=== PATIENT | female | born 2000 | race Two or more races ===

== ENCOUNTER 2024-05-10 19:57 | Inpatient (IN) | payer MEDICAID, SELFPAY ==
[2024-05-10] VITALS (8 sets, daily range): BP systolic 102–105; BP diastolic 53–68; PULSE 140–177; RESP 20–41; TEMP 38.8–39; O2SAT 2–100; BMI 16.6
--- NOTE | 2024-05-10 20:33 | XR_ITS ---
Examination: AP chest single view Technique one AP portable semiupright chest single view. Examination time: Every second 2024 2055 hours Comparison August 11, 2023 INDICATIONS: Sepsis today. FINDINGS: Early bilateral perihilar pneumonia. Normal heart size. The osseous structures are intact IMPRESSION: Early bilateral pneumonia
[2024-05-10 20:44] LABS: Collection Type, Urine Catheter; WBC,Urine 0 /hpf (0-5)
[2024-05-10] MEDS: RINGERS LACTATED 1000 ML 1,000 ML 999 ML IV (20:53)
[2024-05-10 20:58] LABS: Lactate (Lactic Acid) 1.5 mMol/L (0.4-2.0)
[2024-05-10 20:59] LABS: Basophils % (Auto) 0 % (0-2.5); Eosinophils # (Auto) 0.2 Thou/mm3 (0.0-0.5); Eosinophils % (Auto) 2 % (0-10); Hematocrit 32.2 % (36.0-46.0); Hemoglobin 10.5 g/dL (12.0-16.0); Immature Granulocytes % (Auto) 0 % (0-0); Immature Granulocytes Auto 0.02 Thou/mm3 (0.00-0.00); Lymphocytes % (Auto) 13 % (10-50); Mean Corpuscular HGB Conc 32.6 g/dl (31.0-37.0); Mean Corpuscular Hemoglobin 29.2 pg (25.0-35.0); Mean Corpuscular Volume 90 fL (80-100); Monocytes # (Auto) 0.9 Thou/mm3 (0.0-0.8); Monocytes % (Auto) 11 % (0-12); Neutrophils # (Auto) 5.7 Thou/mm3 (1.8-7.7); Neutrophils % (Auto) 73 % (37-80); Nucleated Red Blood Cell % 0 /100 WBC (0); Platelet Count 347 Thou/mm3 (140-440); RDW Standard Deviation 43.2 fL (36.4-46.3); Red Blood Count 3.59 Miln/mm3 (4.00-5.20); White Blood Count 7.9 Thou/mm3 (3.6-11.0)
[2024-05-10 21:06] LABS: Bilirubin,Urine Negative (Negative); Blood,Urine Negative (Negative); Budding Yeast,Urine Present; Color,Urine Lt-Yellow (Lt Yel-Yel); Glucose, Urine Negative (Negative); Ketones,Urine Negative (Negative); Leukocyte Esterase,Urine Negative (Negative); Nitrite,Urine Negative (Negative); Protein,Urine Negative (Neg - Trace); RBC,Urine 1 /hpf (0-3); Specific Gravity,Urine 1.011 (1.001-1.035); Squamous Epithelial Cell,Urine < 1 /hpf (0-5); Urobilinogen,Urine Negative mg/dL (0.0-1.0)
[2024-05-10 21:09] LABS: Clarity,Urine Hazy (Clear/Hazy)
[2024-05-10] MEDS: ACETAMINOPHEN SUPP 650 MG SUPP PR (21:14)
--- NOTE | 2024-05-10 21:15 | PD.EDCHEST ---
ED Chest Pain RME/HPI General Chief Complaint: Chest Pain Stated Complaint: FAST HEART RATE Time Seen by Provider: 05/10/24 20:40 Arrival date/time: 05/10/24 19:57 RME / HPI RME / HPI narrative: Patient is a 23-year-old female nonverbal at baseline, with past medical history of developmental delay due to cerebral palsy, chronically bedbound with PEG tube, past seizures (not on antiepileptics), and anxiety who was brought to the ED from [facility] due to tachycardia. Initial vitals included RR 20, 98% O2 on 6L, HR 160, BP 144/95. Patient was given 6 mg adenosine followed by 12 mg adenosine per EMS with no change in the heart rate. Patient was noted to have cough and congestion. Patient appears slightly uncomfortable however is at her baseline mental status per caregiver at the bedside. Related Data Home Medications ?Medication ?Instructions ?Recorded ?Confirmed acetaminophen 325 mg tablet 650 mg feeding tube Q4H PRN Fever 07/04/19 08/11/23 (Tylenol) Or Pain albuterol sulfate 90 mcg/actuation 2 puff inhalation QID PRN 07/04/19 08/11/23 aerosol inhaler (Ventolin HFA) shortness of breath docusate sodium 50 mg/5 mL oral 100 mg feeding tube BID 07/04/19 08/11/23 liquid simethicone 40 mg/0.6 mL oral 1 drp feeding tube UD 07/04/19 08/11/23 drops,suspension therapeutic multivitamin 1 tab feeding tube QDAY 07/04/19 08/11/23 (Thera-Tabs tablet) dextromethorphan 5 mg-guaifenesin 5 ml PO Q8HR PRN Cough 07/05/19 08/11/23 50 mg/5 mL oral liquid (Robitussin Cough-Chest Congestion DM) Previous Rx's ?Medication ?Instructions ?Recorded baclofen 10 mg tablet 10 mg feeding tube BID PRN Muscle 07/08/19 Spasm #0 tabs bisacodyl 10 mg rectal suppository 10 mg PA HS PRN Constipation #0 ea 07/08/19 loratadine 10 mg tablet (Claritin) 10 mg feeding tube QDAY PRN 07/08/19 Allergy Symptoms #0 tabs lorazepam 0.5 mg tablet 0.5 mg feeding tube [id number] PRN 07/08/19 Anxiety #0 tabs ondansetron HCl 4 mg tablet 4 mg feeding tube QID PRN Nausea 07/08/19 (Zofran) And Vomiting #0 tabs polyethylene glycol 3350 17 gram 17 g feeding tube EVERYOTHERDAY 07/08/19 oral powder packet (Miralax) PRN Constipation #0 ea therapeutic multivitamin 1 tab feeding tube QDAY #0 tabs 07/08/19 (Thera-Tabs tablet) famotidine 40 mg tablet 40 mg feeding tube QDAY gastritis 08/13/23 1 month #30 tabs Allergies Allergy/AdvReac Type Severity Reaction Status Date / Time No Known Allergies Allergy Verified 08/10/23 19:50 Past Medical History Past Medical History Comments PMH COMMENT: Past Medical History: Nonverbal at baseline, developmental delay due to cerebral palsy, chronically bedbound with PEG tube, past seizures (not on antiepileptics), and anxiety Family History: Unknown Surgical History: No surgical history Social History: No history of smoking, alcohol use, recreational drug use Current Medications: Baclofen 20 mg BID, famotidine 40 mg qday, bisacodyl 10 mg HS, glycopyrrolate 1 mg BID, docusate 10 ml BID, claritin 10 mg qday, multi-vitamin qday, miralax 17 gm qday, lorazepam 0.5 mg q6h prn, acetaminophen 650 mg q4h prn, ondansetron 4 mg q6h prn, fleet enema prn, diphenhydramine 25 mg q4h prn, ibuprofen 400 mg q8h prn, robitussin 5 ml q8h prn, simethicone 40 mg BID prn, DuoNeb 2.5-0.5 q6h prn (Source: [facility] medication list) Allergies: No known drug allergies ED Exam Narrative Physical exam: Physical Exam General: Bedbound, developmentally delayed female and chronically contracted. HEENT: Normocephalic, atraumatic, mucous membranes moist. Wet upper airway sounds. Heart: Tachycardic rate and regular rhythm, no murmurs. Lungs: Poor inspiratory sounds bilaterally. Abdomen: Soft, nondistended, nontender, positive bowel sounds. ?No guarding or rebound tenderness. PEG tube is in place central abdomen without drainage, erythema, or purulence. Neurologic: Patient is at baseline mental status per caregiver. Nonverbal. Contracted extremities, constant upper extremity movement. Extremities: No edema. Skin: No rash or ecchymoses. Course Course Course Narrative: 20:05 EKG #1: Sinus tachycardia 160, no acute ST-T changes 20:[address] Donohue seen and evaluated the patient at bedside. Sepsis labs ordered, UA and CXR, IV fluids at 30 cc/kg, and antibiotics. Ordered CT abd/pelv w/o con to rule out additional causes. 00:30 Evaluation of the patient with Dr. Savage, source appears to be bilateral pneumonia, as patient is still tachycardic and febrile, will administer IV tylenol and ketorolac and assess response. Quality Measures Possible source: pulmonary Blood cultures ordered: yes Antibiotic ordered: Yes Pertinent labs: 05/10/24 20:53 Lactic Acid 1.5 mMol/L (0.4-2.0) Procalcitonin 0.14 ng/ml (0.0-0.49) sepsis and none Orders Category Date Time Status Admit to Inpatient Status Routine Admission 05/11/24 02:01 Active Patient Condition Routine Admission 05/11/24 02:01 Ordered Bedside COVID-19 Antigen Test NOW Care 05/11/24 02:07 Active Bedside Influenza A&B Antigen Test NOW Care 05/10/24 21:16 Active COVID-19 Screening Questionnaire NOW Care 05/11/24 01:16 Active [employer] Work[employer] STAT Care 05/10/24 20:40 Active Continuous Pulse Oximetry NOW Care 05/11/24 02:00 Active Continuous Pulse Oximetry STAT Care 05/10/24 20:40 Active Decision to Admit X1 Care 05/11/24 01:16 Active EKG (ED ONLY) *Do not use* NOW Care 05/10/24 20:36 Completed In and Out Catheter X1PRN Care 05/10/24 20:40 Completed Insert IV NOW Care 05/10/24 20:40 Active Intake and Output QSHIFT Care 05/11/24 02:15 Ordered Miscellaneous Nursing Order NOW Care 05/11/24 02:00 Active NPO STAT Care 05/10/24 20:40 Active Notify provider NEEDED Care 05/11/24 02:01 Active Seizure precautions NOW Care 05/11/24 02:01 Active Strict Intake and Output Routine Care 05/10/24 20:[address] abdomen pelvis wo con Stat Exams 05/10/24 22:02 Completed CXRP [XR chest 1V portable] Stat Exams 05/10/24 20:33 Completed EKG (ED Only) Stat Exams 05/10/24 20:36 Ordered Blood Culture (Lab) Stat Lab 05/10/24 20:50 Received CBC AM DRAW Lab 05/11/24 05:00 Ordered CBC AM DRAW Lab 05/12/24 05:00 Ordered CBC AM DRAW Lab 05/13/24 05:00 Ordered CBC AM DRAW Lab 05/14/24 05:00 Ordered CBC AM DRAW Lab 05/15/24 05:00 Ordered CBC AM DRAW Lab 05/16/24 05:00 Ordered CBC AM DRAW Lab 05/17/24 05:00 Ordered CBC Stat Lab 05/10/24 20:53 Completed CMP [Comprehensive Metabolic Panel] Stat Lab 05/10/24 20:53 Completed Comprehensive Metabolic Panel AM DRAW Lab 05/11/24 05:00 Ordered Comprehensive Metabolic Panel AM DRAW Lab 05/12/24 05:00 Ordered Comprehensive Metabolic Panel AM DRAW Lab 05/13/24 05:00 Ordered Comprehensive Metabolic Panel AM DRAW Lab 05/14/24 05:00 Ordered Comprehensive Metabolic Panel AM DRAW Lab 05/15/24 05:00 Ordered Comprehensive Metabolic Panel AM DRAW Lab 05/16/24 05:00 Ordered Comprehensive Metabolic Panel AM DRAW Lab 05/17/24 05:00 Ordered FLU A&B [Influenza A & B Rapid Panel] Stat Lab 05/11/24 02:09 Ordered Lactic Acid [Lactate (Lactic Acid)] Stat Lab 05/10/24 20:53 Completed Lipid Panel AM DRAW Lab 05/11/24 05:00 Ordered Mag [Magnesium] Stat Lab 05/10/24 20:53 Completed Magnesium AM DRAW Lab 05/11/24 05:00 Ordered Magnesium AM DRAW Lab 05/12/24 05:00 Ordered Magnesium AM DRAW Lab 05/13/24 05:00 Ordered Partial Thromboplastin Time AM DRAW Lab 05/12/24 05:00 Ordered Phosphorous AM DRAW Lab 05/12/24 05:00 Ordered Phosphorous AM DRAW Lab 05/13/24 05:00 Ordered Phosphorous AM DRAW Lab 05/14/24 05:00 Ordered Phosphorous Stat Lab 05/10/24 20:53 Completed Procalcitonin Stat Lab 05/10/24 20:53 Completed Prothrombin Time with INR AM DRAW Lab 05/12/24 05:00 Ordered RSV [Respiratory Syncytial Virus Ag] Stat Lab 05/11/24 02:09 Ordered Sputum Culture and Gram Stain Stat Lab 05/11/24 02:09 Ordered Thyroid Stimulating Hormone AM DRAW Lab 05/11/24 05:00 Ordered Urinalysis Stat Lab 05/10/24 20:39 Completed Urine Culture Stat Lab 05/10/24 20:40 Received Acetaminophen Ivpb [Ofirmev Inj] Med 05/10/24 20:51 Discontinued 1,000 mg in 100 ml IV X1 Acetaminophen Supp [Tylenol Supp] Med 05/11/24 02:00 Active 650 mg PA Q6HR PRN Acetaminophen Supp [Tylenol Supp] Med 05/10/24 21:08 Discontinued 650 mg PA X1 ONE Cefepime Inj [Maxipime Inj] 1 gm Med 05/10/24 21:11 Discontinued Sodium Chloride 0.9% (P) [Ns 0.9% (P)] 50 ml IV X1 Doxycycline Inj [Vibramycin Inj] 100 mg Med 05/11/24 09:00 Ordered Sodium Chloride 0.9% (P) [NS 0.9% mini bag] 100 ml IV BID Heparin Inj Med 05/11/24 06:00 Ordered 5,000 unit SC Q8HR Ipratropium [place] Rt Essence [Atrovent Rt Essence] Med 05/11/24 00:20 Discontinued 0.5 mg INH X1 ONE Ketorolac Inj [Toradol Inj] Med 05/11/24 00:20 Discontinued 15 mg IVP X1 ONE Lactulose Syrup [Enulose Syrup] Med 05/11/24 09:00 Ordered 10 gm GT QDAY Lactulose Syrup [Enulose Syrup] Med 05/11/24 09:00 Discontinued 10 gm PO QDAY Levalbuterol Rt [Xopenex Rt Essence] Med 05/11/24 00:20 Discontinued 0.63 mg INH X1 ONE Pantoprazole Inj [Protonix Inj] Med 05/11/24 09:00 Ordered 40 mg IVP QDAY Piper/Tazo Inj [Zosyn Inj] 4.5 gm Med 05/11/24 02:08 Ordered Sodium Chloride 0.9% (P) [NS 0.9% mini bag] 100 ml IV Q6HR Ringers Lactated 1000 ml [Lactated Ringers] 1,000 ml Med 05/11/24 02:12 Ordered IV 125 mls/hr Ringers Lactated 1000 ml [Lactated Ringers] 1,000 ml Med 05/10/24 20:37 Discontinued IV 999 mls/hr Senna [Senokot] Med 05/11/24 09:00 Ordered 1 tab GT QDAY Senna [Senokot] Med 05/11/24 09:00 Discontinued 1 tab PO QDAY Sodium Chloride Rt Esesnce 10% [NS Rt Essence 10%] Med 05/11/24 02:07 Discontinued 5 ml INH X1 ONE metroNIDAZOLE/NS 500 MG IVPB [Flagyl 500 mg IV] Med 05/10/24 21:13 Discontinued 500 mg in 100 ml IV X1 Code Status Routine Oth 05/11/24 02:00 Ordered EKG (RT) Stat RT 05/11/24 02:00 Ordered Oxygen Delivery NOW RT 05/10/24 20:40 Active Oxygen Delivery PRN RT 05/11/24 02:00 Active Sputum Induction PRN RT 05/11/24 02:15 Ordered Reevaluation(s) Reevaluation #1: 23:26 Visited patient at bedside, appears more interactive, HR is improved to 140-150. Asked caregiver if patient has history of seizures as stated in the chart review. States that history of seizures is remote, and that the patient is not currently taking any anti-epileptic medications. Time: 00:30 Reevaluation #2: 00:30 Visited patient at bedside with Dr. Savage. CT abdomen/pelvis results showed abundant stool in the rectum, 3 mm nonobstructive renal stone, without any additional sources of infection to be identified. Patient still tachycardic to 140s, febrile to 101.2. Will given IV acetaminophen 1000 mg and IV ketorolac 15 mg and reassess response. Vital Signs Vital signs: Vital Signs Temperature 102.2 F H 05/10/24 20:27 Pulse Rate 167 H 05/10/24 20:27 Respiratory Rate 35 H 05/10/24 20:27 Blood Pressure 102/64 05/10/24 20:27 Pulse Oximetry (%) 96 05/10/24 20:27 Oxygen Delivery Method Nasal Cannula 05/10/24 20:27 Oxygen Flow Rate 2 05/10/24 20:27 Chest Pain MDM Narrative MDM Narrative:: See above Patient data External records reviewed:: [facility] previous records Clinical information provided by:: EMS and hedis abstractor Social determinants that could affect healthcare access:: none Patient has the following chronic illnesses:: Nonverbal at baseline, with past medical history of developmental delay due to cerebral palsy, chronically bedbound with PEG tube, past seizures (not on antiepileptics), and anxiety How is presenting disease/condition affected by chronic disease/condition?: exacerbated by Evaluation data The following diagnostics were reviewed and interpreted by me:: lab results, radiology exam(s) and EKG tracing(s) Lab and/or radiology exams considered but not ordered:: CT pulmonary angiogram to rule out PE Interpretation Summary: Imaging studies ordered to investigate source for sepsis. Only finding has been bilateral mild pneumonia. Medications / Prescriptions Medications or Prescriptions considered but not ordered:: None Medication administrations:: Medication Administration History Acetaminophen (Acetaminophen Supp 650 Mg Supp) 650 mg PA Q6HR PRN PRN Reason: [id number] Stop: 06/10/24 01:59 Heparin Sodium (Porcine) (Heparin Sod Inj 5000 Unit/Ml Vial) 5,000 unit SC Q8HR OLAMIDE Stop: 05/25/24 05:59 Piperacillin Sod/Tazobactam (Sod 4.5 gm/ Sodium Chloride) 100 mls @ 200 mls/hr IV Q6HR OLAMIDE Stop: 05/18/24 02:07 Doxycycline Hyclate 100 mg/ (Sodium Chloride) 100 mls @ 100 mls/hr IV BID OLAMIDE Stop: 05/18/24 08:59 Lactated Ringer's (Lactated Ringers) 1,000 mls @ 125 mls/hr IV .Q8H OLAMIDE Stop: 05/11/24 10:11 Lactulose (Lactulose Syrup 20 Gm/30 Ml c) 10 gm GT QDAY OLAMIDE; Protocol Stop: 06/10/24 08:59 Pantoprazole Sodium (Pantoprazole Inj 40 Mg Vial) 40 mg IVP QDAY OLAMIDE Stop: 06/10/24 08:59 Sennosides (Senna Tablet) 1 tab GT QDAY OLAMIDE; Protocol Stop: 06/10/24 08:59 Discontinued Medications Acetaminophen (Acetaminophen Supp 650 Mg Supp) 650 mg PA X1 ONE Stop: 05/10/24 21:09 Last Admin: 05/10/24 21:14 Dose: 650 mg Documented By: SUPRIYA Lactated Ringer's (Lactated Ringers) 1,000 mls @ 999 mls/hr IV .Q1H1M ONE Stop: 05/10/24 21:37 Last Infusion: 05/10/24 21:54 Dose: Infused Documented By: Admin: 05/10/24 20:53 Dose: 999 mls/hr Documented By: SUPRIYA Acetaminophen (Ofirmev Inj) 1,000 mg in 100 mls @ 250 mls/hr IV X1 ONE Stop: 05/10/24 21:14 Last Admin: 05/10/24 21:31 Dose: Not Given Documented By: SUPRIYA Non-Admin Reason: Other, see note Cefepime HCl 1 gm/ Sodium (Chloride) 50 mls @ 100 mls/hr IV X1 ONE Stop: 05/10/24 21:40 Last Infusion: 05/10/24 21:51 Dose: Infused Documented By: Admin: 05/10/24 21:21 Dose: 100 mls/hr Documented By: SUPRIYA Metronidazole (Flagyl 500 Mg Iv) 500 mg in 100 mls @ 100 mls/hr IV X1 ONE Stop: 05/10/24 22:12 Last Infusion: 05/10/24 23:45 Dose: Infused Documented By: Admin: 05/10/24 22:45 Dose: 100 mls/hr Documented By: SUPRIYA Ipratropium [place] (Ipratropium Rt 0.5 Mg/ 2.5 Ml Nebu) 0.5 mg INH X1 ONE Stop: 05/11/24 00:21 Last Admin: 05/11/24 00:32 Dose: 0.5 mg Documented By: ARETHA Ketorolac Tromethamine (Ketorolac Inj 30 Mg/Ml Vial) 15 mg IVP X1 ONE Stop: 05/11/24 00:21 Last Admin: 05/11/24 00:52 Dose: 15 mg Documented By: SUPRIYA Lactulose (Lactulose Syrup 20 Gm/30 Ml Udc) 10 gm PO QDAY OLAMIDE; Protocol Stop: 06/10/24 08:59 Levalbuterol HCl (Levalbuterol Rt 0.63 Mg/3 Ml Nebu) 0.63 mg INH X1 ONE Stop: 05/11/24 00:21 Last Admin: 05/11/24 00:32 Dose: 0.63 mg Documented By: ARETHA Sennosides (Senna Tablet) 1 tab PO QDAY OLAMIDE; Protocol Stop: 06/10/24 08:59 Sodium Chloride (Sodium Chloride Rt 10% 15 Ml Nebu) 5 ml INH X1 ONE Stop: 05/11/24 02:08 . Consultations Consultation(s) initiated? (list below): Yes Consultation #1 (Physician, Specialty, Details): Case d/w internal medicine who was made aware of the patient?s HPI, PMHx, lab and/or radiology results. Treatment plan was discussed. Accepts patient for admission. Time: 01:16 Diagnosis Most likely diagnosis given after review of the tests above:: Sepsis secondary to community acquired pneumonia Admission Indicated Admission indicated?: indicated Admission Request Was there a request for admission?: Yes Admission Attestation Admission request attestation: Discussed case with [resident with Dr. Patricio, attending] from Hospitalist service regarding admission. Discussed patients ED course, exam findings, labs, and radiology results. The Hospitalist [agrees] to accept the patient for admission. Disposition Plan Disposition Plan: Admit Discharge Plan Plan Patient Disposition: Admit Acute Care w/in Hospital Patient condition on transfer: Stable Prescriptions/Referrals Prescriptions/Med Rec: No Action docusate sodium 50 mg/5 mL Liquid 100 mg feeding tube BID Thera-Tabs Tablet 1 tab feeding tube QDAY acetaminophen [Tylenol] 325 mg Tablet 650 mg feeding tube Q4H PRN (Reason: Fever Or Pain) simethicone 40 mg/0.6 mL Drops,Suspension 1 drp feeding tube UD Rx Instructions: one drop 1 to 2 times per day prn constipation and/or gas albuterol sulfate [Ventolin HFA] 90 mcg/actuation Hfa Aerosol Inhaler 2 puff INHALATION QID PRN (Reason: shortness of breath) Robitussin Cough-Chest Manuel DM 5-50 mg/5 mL Liquid 5 ml PO Q8HR PRN (Reason: Cough) Rx Instructions: PRN polyethylene glycol 3350 [Miralax] 17 gram Powder In Packet 17 g feeding tube EVERYOTHERDAY PRN (Reason: Constipation) Qty: 0 0RF ondansetron HCl [Zofran] 4 mg Tablet 4 mg feeding tube QID PRN (Reason: Nausea And Vomiting) Qty: 0 0RF Thera-Tabs Tablet 1 tab feeding tube QDAY Qty: 0 0RF lorazepam 0.5 mg Tablet 0.5 mg feeding tube [id number] PRN (Reason: Anxiety) Qty: 0 0RF baclofen 10 mg Tablet 10 mg feeding tube BID PRN (Reason: Muscle Spasm) Qty: 0 0RF bisacodyl 10 mg Suppository 10 mg PA HS PRN (Reason: Constipation) Qty: 0 0RF Rx Instructions: give if no bowel movement that day, hold if has a bm same day loratadine [Claritin] 10 mg Tablet 10 mg feeding tube QDAY PRN (Reason: Allergy Symptoms) Qty: 0 0RF famotidine 40 mg tablet 40 mg feeding tube QDAY 30 Days Qty: 30 3RF Referrals: No Primary/Family,Physician [Primary Care Provider] - In 1 week Problem List Clinical Impression: Community acquired pneumonia, Sepsis Patient/Caregiver Discharge Instructions Print Language: Ugandan Stand Alone Forms: [employer] Award Info., Patient Portal Info Letter
[2024-05-10] MEDS: CEFEPIME INJ 1 GM in SODIUM CHLORIDE 0.9% (P) 50 ML IV (21:21)
[2024-05-10 21:26] LABS: Alanine Aminotransferase 17 U/L (10-49); Albumin, Serum 3.8 gm/dL (3.5-5.0); Albumin/Globulin Ratio 1.3 (1.2-2.2); Alkaline Phosphatase 106 U/L (46-116); Anion Gap 7 (7-16); Aspartate Amino Transferase 24 U/L (0-34); BUN/Creatinine Ratio 20 Ratio (12-20); Bilirubin,Total 0.3 mg/dL (0.3-1.2); Blood Urea Nitrogen 8 mg/dL (9-23); Calcium (Corrected) 9.2 mg/dL (8.5-10.1); Carbon Dioxide 25.9 mMol/L (20.0-31.0); Chloride 107 mMol/L (98-107); Creatinine (Component) 0.4 mg/dL (0.6-1.3); Estimated Creatinine Clearance 118.5 mL/min (>60); Glucose 103 mg/dL (74-106); Magnesium 1.9 mg/dL (1.6-2.6); Osmolality,Calculated 277 (275-295); Phosphorous 2.9 mg/dL (2.4-5.1); Potassium 4.2 mMol/L (3.4-5.1); Sodium 140 mMol/L (136-145); Total Protein 6.8 gm/dL (5.7-8.2); eGFR > 60 See Note
[2024-05-10 21:30] LABS: Procalcitonin 0.14 ng/ml (0.0-0.49)
--- NOTE | 2024-05-10 22:02 | XR_ITS ---
Examination: CT abdomen and pelvis without contrast. Coronal 3-D reconstructions. Sagittal 2-D reconstructions. Date and time of exam:May 10, 2024 1004 hours INDICATIONS: Sepsis dextrocardia today CTDI: vol (mGy): 5.80 DLP: (mGycm): 308 Technique: Axial images of the abdomen have been obtained, 3 mm slice thickness Intravenous contrast material has not been administered. Low dose protocols were performed. One or more of the following dose reduction techniques were used; automated exposure control, adjustment of the mA and/or KV according to patient size, use of iterative reconstruction technique. Findings: Mild pneumonia at the lung bases Patient motion severely degrades image quality No gross liver or splenic lesion Colonic ileus 3 mm left renal calculus No definite free air Mildly distended urinary bladder Abundant stool in the rectosigmoid Left congenital hip dysplasia IMPRESSION: Patient motion severely degrades image quality 3 mm left renal calculus Abundant stool in the rectosigmoid
[2024-05-10] MEDS: metroNIDAZOLE/NS 500 MG IVPB 500 MG/100 ML BAG 100 MG IV (22:45)
[2024-05-11] VITALS (22 sets, daily range): BP systolic 90–110; BP diastolic 50–88; PULSE 114–161; RESP 16–29; TEMP 36.3–40.1; O2SAT 88–100; BMI 16.6
[2024-05-11] MEDS: IPRATROPIUM RT 0.5 MG/ 2.5 ML NEBU INH (00:32)
[2024-05-11] MEDS: LEVALBUTEROL RT 0.63 MG/3 ML NEBU INH (00:32)
[2024-05-11] MEDS: KETOROLAC INJ 30 MG/ML VIAL 15 MG IVP (00:52)
--- NOTE | 2024-05-11 02:00 | EKG_ITS ---
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
--- NOTE | 2024-05-11 02:17 | PD.RESHP ---
Documentation for date of: 05/11/24 HPI History of Present Illness Chief complaint: Tachycardia History of present illness: Ms. East is a 23-year-old female who is nonverbal at baseline, with past medical history of developmental delay due to cerebral palsy, seizure disorder (not on AED), anxiety, chronically bedbound with PEG tube, who presented to [facility] ED from [facility] on 05/10/24 with a chief complaint of tachycardia. Patient is nonverbal at baseline, history obtained from fermenting cellars supervisor at bedside, per the fermenting cellars supervisor patient was fine until yesterday when she had an episode of vomiting and possibly she aspirated. Later this morning they noticed that the patient was tachycardic and called EMS, per chart review and ED patient received 6 mg adenosine followed by 12 mg due to tachycardia. In ED patient was noted to have met SIRS criteria, sepsis alert was called in the ED. On further investigation patient was noted to have bilateral bibasilar pneumonia. Per the fermenting cellars supervisor at bedside, patient seems to be at baseline otherwise. Patient had productive cough for fermenting cellars supervisor for the last week otherwise denies any diarrhea, blood in stool or any other complaints. ED Course: ED Vitals: On presentation BP 102/64, P167, respiratory rate 35, temp 102.2, O2 sat 96 on 2 L nasal cannula ED Labs: ED labs significant for hemoglobin 10.5, RBC 3.59, hematocrit 32.2, BUN 8, creatinine 0.4 urine significant for yeast ED Imaging:Chest x-ray significant for early bilateral pneumonia CT abdomen pelvis shows mild pneumonia at lung bases, colonic ileus and abundant stool in rectosigmoid ED Treatment:Patient was given 1 L of LR, Tylenol NV, cefepime x 1, metronidazole x 1 levalbuterol, ipratropium and Toradol in the ED. Patient admitted to hospital for acute hypoxic respiratory failure and sepsis secondary to pneumonia. Review of Systems Review of Systems ROS Unobtainable: unobtainable due to mental status (Nonverbal at baseline, cerebral palsy) Past Medical History Past Medical History Comments PMH COMMENT: Past Medical History: Nonverbal at baseline, developmental delay due to cerebral palsy, chronically bedbound with PEG tube, past seizures (not on antiepileptics), and anxiety Family History: Unknown Surgical History: No surgical history Social History: No history of smoking, alcohol use, recreational drug use Current Medications: Baclofen 20 mg BID, famotidine 40 mg qday, bisacodyl 10 mg HS, glycopyrrolate 1 mg BID, docusate 10 ml BID, claritin 10 mg qday, multi-vitamin qday, miralax 17 gm qday, lorazepam 0.5 mg q6h prn, acetaminophen 650 mg q4h prn, ondansetron 4 mg q6h prn, fleet enema prn, diphenhydramine 25 mg q4h prn, ibuprofen 400 mg q8h prn, robitussin 5 ml q8h prn, simethicone 40 mg BID prn, DuoNeb 2.5-0.5 q6h prn (Source: [facility] medication list) Allergies: No known drug allergies Exam Vital Signs Temp Pulse Resp BP Pulse Ox O2 Del Method O2 Flow Rate 99.5 F 119 H 17 90/50 L 93 L Nasal Cannula 2 05/11/24 02:09 05/11/24 02:05 05/11/24 02:05 05/11/24 02:05 05/11/24 02:05 05/11/24 02:05 05/11/24 02:05 Narrative Exam Physical Exam General: Awake and restless. Non-verbal at baseline, developmentally delayed. HEENT: Microcephalic, atraumatic, mucous membranes moist. Brown crusting around lips. Heart: Regular rate and rhythm, no murmurs. Lungs: Clear to auscultation with no wheezing or crackles. Abdomen: Soft, nondistended, nontender, positive bowel sounds. ?No guarding or rebound tenderness. Neurologic: Alert and oriented x3, no gross neurological deficit, and patient able to move all 4 extremities. Extremities: No edema. Contracted extremities noted. Skin: No rash or ecchymoses. Results: Labs 05/10/24 20:53 05/10/24 20:53 Labs: Short CBC 05/10/24 Range/Units 20:53 WBC 7.9 (3.6-11.0) Thou/mm3 Hgb 10.5 L (12.0-16.0) g/dL Hct 32.2 L (36.0-46.0) % Plt Count 347 (140-440) Thou/mm3 [facility] 05/10/24 20:53 Sodium 140 Potassium 4.2 Chloride 107 Carbon Dioxide 25.9 BUN 8 L Creatinine 0.4 L Glucose 103 Calcium 9.0 Liver Function 05/10/24 Range/Units 20:53 Total Bilirubin 0.3 (0.3-1.2) mg/dL AST 24 (0-34) U/L ALT 17 (10-49) U/L Alkaline Phosphatase 106 (46-116) U/L Albumin 3.8 (3.5-5.0) gm/dL Urine 05/10/24 Range/Units 20:39 Urine Color Lt-Yellow (Lt Yel-Yel) Urine Clarity Hazy (Clear/Hazy) Urine pH 8.0 H (5.0-7.0) Ur Specific [place] 1.011 (1.001-1.035) Urine Protein Negative (Neg - Trace) Urine Glucose (UA) Negative (Negative) Quality Measures Quality Measures sepsis Current suspected stage: sepsis Possible source: pulmonary Blood cultures ordered: yes Antibiotic ordered: Yes and none Medications Home Medications and Allergies Home Medications ?Medication ?Instructions ?Recorded ?Confirmed ?Type acetaminophen 325 mg tablet 650 mg feeding tube Q4H PRN Fever 07/04/19 08/11/23 History (Tylenol) Or Pain albuterol sulfate 90 mcg/actuation 2 puff inhalation QID PRN 07/04/19 08/11/23 History aerosol inhaler (Ventolin HFA) shortness of breath docusate sodium 50 mg/5 mL oral 100 mg feeding tube BID 07/04/19 08/11/23 History liquid simethicone 40 mg/0.6 mL oral 1 drp feeding tube UD 07/04/19 08/11/23 History drops,suspension therapeutic multivitamin 1 tab feeding tube QDAY 07/04/19 08/11/23 History (Thera-Tabs tablet) dextromethorphan 5 mg-guaifenesin 5 ml PO Q8HR PRN Cough 07/05/19 08/11/23 History 50 mg/5 mL oral liquid (Robitussin Cough-Chest Congestion DM) Allergies Allergy/AdvReac Type Severity Reaction Status Date / Time No Known Allergies Allergy Verified 08/10/23 19:50 Visit Medications Acetaminophen (Acetaminophen Supp 650 Mg Supp) 650 mg NV Q6HR PRN PRN Reason: [id number] Stop: 06/10/24 01:59 Guaifenesin (Guaifenesin Syrup 200 Mg/10 Ml Udc) 200 mg GT QID PRN; Protocol PRN Reason: COUGH OR CONGESTION Stop: 06/10/24 02:15 Heparin Sodium (Porcine) (Heparin Sod Inj 5000 Unit/Ml Vial) 5,000 unit SC Q8HR OLAMIDE Stop: 05/25/24 05:59 Piperacillin Sod/Tazobactam (Sod 4.5 gm/ Sodium Chloride) 100 mls @ 200 mls/hr IV Q6HR OLAMIDE Stop: 05/18/24 02:07 Doxycycline Hyclate 100 mg/ (Sodium Chloride) 100 mls @ 100 mls/hr IV BID OLAMIDE Stop: 05/18/24 08:59 Lactated Ringer's (Lactated Ringers) 1,000 mls @ 125 mls/hr IV .Q8H OLAMIDE Stop: 05/11/24 10:11 Lactulose (Lactulose Syrup 20 Gm/30 Ml Udc) 10 gm GT QDAY OLAMIDE; Protocol Stop: 06/10/24 08:59 Pantoprazole Sodium (Pantoprazole Inj 40 Mg Vial) 40 mg IVP QDAY OLAMIDE Stop: 06/10/24 08:59 Sennosides (Senna Tablet) 1 tab GT QDAY OLAMIDE; Protocol Stop: 06/10/24 08:59 Discontinued Medications Acetaminophen (Acetaminophen Supp 650 Mg Supp) 650 mg NV X1 ONE Stop: 05/10/24 21:09 Last Admin: 05/10/24 21:14 Dose: 650 mg Lactated Ringer's (Lactated Ringers) 1,000 mls @ 999 mls/hr IV .Q1H1M ONE Stop: 05/10/24 21:37 Last Infusion: 05/10/24 21:54 Dose: Infused Acetaminophen (Ofirmev Inj) 1,000 mg in 100 mls @ 250 mls/hr IV X1 ONE Stop: 05/10/24 21:14 Last Admin: 05/10/24 21:31 Dose: Not Given Cefepime HCl 1 gm/ Sodium (Chloride) 50 mls @ 100 mls/hr IV X1 ONE Stop: 05/10/24 21:40 Last Infusion: 05/10/24 21:51 Dose: Infused Metronidazole (Flagyl 500 Mg Iv) 500 mg in 100 mls @ 100 mls/hr IV X1 ONE Stop: 05/10/24 22:12 Last Infusion: 05/10/24 23:45 Dose: Infused Ipratropium [place] (Ipratropium Rt 0.5 Mg/ 2.5 Ml Nebu) 0.5 mg INH X1 ONE Stop: 05/11/24 00:21 Last Admin: 05/11/24 00:32 Dose: 0.5 mg Ketorolac Tromethamine (Ketorolac Inj 30 Mg/Ml Vial) 15 mg IVP X1 ONE Stop: 05/11/24 00:21 Last Admin: 05/11/24 00:52 Dose: 15 mg Lactulose (Lactulose Syrup 20 Gm/30 Ml Udc) 10 gm PO QDAY OLAMIDE; Protocol Stop: 06/10/24 08:59 Levalbuterol HCl (Levalbuterol Rt 0.63 Mg/3 Ml Nebu) 0.63 mg INH X1 ONE Stop: 05/11/24 00:21 Last Admin: 05/11/24 00:32 Dose: 0.63 mg Sennosides (Senna Tablet) 1 tab PO QDAY OLAMIDE; Protocol Stop: 06/10/24 08:59 Sodium Chloride (Sodium Chloride Rt 10% 15 Ml Nebu) 5 ml INH X1 ONE Stop: 05/11/24 02:08 Assessment & Plan Plan Assessment and Plan: Summary: Ms. East is a 23-year-old female who is nonverbal at baseline, with past medical history of developmental delay due to cerebral palsy, seizure disorder (not on AED), anxiety, chronically bedbound with PEG tube, who presented to [facility] ED from [facility] on 05/10/24 with a chief complaint of tachycardia. Patient admitted to hospital for acute hypoxic respiratory failure and sepsis secondary to pneumonia. # Acute hypoxic respiratory failure # Sepsis secondary to pneumonia, SIRS 3/4 # Bibasilar pneumonia, healthcare associated pneumonia versus aspiration pneumonia Patient not on any oxygen at baseline, presented with tachycardia, met SIRS criteria 3/4, P 167, RR 35, temp 102.2, chest x-ray significant for early pneumonia, CT abdomen pelvis shows mild bibasilar pneumonia, patient on 2 L nasal cannula to maintain SpO2 more than 92 and has productive cough. Patient did not have vomiting yesterday, concern of aspiration pneumonia. Plan: -Started on IV Zosyn and doxycycline (05/11- -Ordered RSV, flu, COVID panel -Ordered sputum culture/Gram stain -Ordered MRSA nasal screen -Follow urine culture -Follow-up blood culture -Supplemental oxygen as needed -Patient was given 1 L LR bolus in ED, started on LR 125 cc/h -Guaifenesin as needed for cough -Tylenol as needed for fever #Colonic ileus, abundant stool CT abdomen pelvis significant for abundant stool in rectosigmoid, concern of colonic ileus. Per patient's fermenting cellars supervisor last bowel movement was yesterday morning, no concern of constipation. Plan: -Lactulose daily -Senna daily #Left renal calculus As evidenced on CT abdomen/pelvis Plan: Outpatient follow-up # Severe protein calorie malnutrition # Status post PEG tube placement Patient's BMI 16.7, weight 34.9 kg, has PEG tube intact Plan: -Referral to registered dietitian #Normocytic normochromic anemia Patient's hemoglobin 10.5, hematocrit 32.2 MCV 90, MCHC 32.6 Plan: -Follow CBC in a.m. #Developmental delay secondary to cerebral palsy #Seizure disorder #Anxiety Patient not on any antiepileptic drugs Pending med reconciliation, resume home meds as needed DVT prophylaxis: Heparin every 8 hours GI prophylaxis: Protonix IV daily Diet: Pending dietary recommendations, patient has PEG tube Lines: Peripheral IV Code status: Full code Case discussed with Attending Dr. Patricio. Ricardo Lara PGY1 Disclaimer: This note was dictated by speech recognition. Minor errors in human resources specialist may be present due to voice recognition software. Attending Provider Attestation/Addendum I attest that I was physically present for the evaluation, physical examination, lab and imaging review of the patient with the residents. I discussed the case with the residents and agree with the findings and plans of care as documented above. Patient is a 23 years old female with history of cerebral palsy, seizure disorder, anxiety, chronically bedbound with PEG tube who presented to the ED from [facility] with complaint of tachycardia. As per the fermenting cellars supervisor at bedside, patient had an episode of vomiting yesterday. Today, she was becoming fussy and was complaining of pain. At the group home she was noted to have tachycardia and they decided to bring her to the ED. Patient received 6 mg adenosine followed by [address] to the ED. In the ED, patient was tachycardic, tachypneic, had a temperature of 102.2 and saturating well on 2 L nasal cannula. Chest x-ray shows early bilateral pneumonia. CT abdomen pelvis also shows pneumonia at lung bases, colonic ileus and abundant stool in rectosigmoid region. It also showed 3 mm left renal calculus. We will admit patient for management of acute hypoxic respiratory failure and sepsis secondary to healthcare associated pneumonia versus aspiration pneumonia. We will start patient on IV Zosyn and doxycycline, supplemental oxygen, IV fluids and acetaminophen. We will obtain cultures, MRSA screen, RSV, flu and COVID panel along with sputum culture and Gram stain. Gloria Patricio MD
[2024-05-11] MEDS: PIPER/TAZO INJ 4.5 GM in SODIUM CHLORIDE 0.9% (P) 100 ML IV (03:03)
[2024-05-11] MEDS: RINGERS LACTATED 1000 ML 1,000 ML 125 ML IV (03:36)
[2024-05-11 04:28] LABS: Respiratory Syncytial Virus Ag Negative (Negative)
[2024-05-11] MEDS: HEPARIN SOD INJ 5000 UNIT/ML VIAL SC ×3 (05:41→22:01)
--- NOTE | 2024-05-11 06:15 | PC.RT ---
at 02:53, auscultated coarse ronchi attemted to suction with samanthaknidhi pt started to vominting coffee like x 3, RN was made aware care given at bedside, sputum culture not attempted for that reason.
[2024-05-11] MEDS: ACETAMINOPHEN SUPP 650 MG SUPP PR (06:18)
[2024-05-11 06:56] LABS: Basophils % (Auto) 1 % (0-2.5); Eosinophils # (Auto) 0.1 Thou/mm3 (0.0-0.5); Eosinophils % (Auto) 1 % (0-10); Hemoglobin 11.2 g/dL (12.0-16.0); Immature Granulocytes % (Auto) 0 % (0-0); Immature Granulocytes Auto 0.03 Thou/mm3 (0.00-0.00); Lymphocytes # (Auto) 1.2 Thou/mm3 (1.0-4.8); Lymphocytes % (Auto) 14 % (10-50); Mean Corpuscular Hemoglobin 28.9 pg (25.0-35.0); Mean Corpuscular Volume 90 fL (80-100); Monocytes % (Auto) 11 % (0-12); Neutrophils # (Auto) 6.4 Thou/mm3 (1.8-7.7); Neutrophils % (Auto) 73 % (37-80); Nucleated Red Blood Cell % 0 /100 WBC (0); Platelet Count 337 Thou/mm3 (140-440); RDW Standard Deviation 43.9 fL (36.4-46.3); Red Blood Count 3.87 Miln/mm3 (4.00-5.20); White Blood Count 8.7 Thou/mm3 (3.6-11.0)
[2024-05-11 07:46] LABS: Alanine Aminotransferase 19 U/L (10-49); Albumin, Serum 3.9 gm/dL (3.5-5.0); Albumin/Globulin Ratio 1.3 (1.2-2.2); Alkaline Phosphatase 102 U/L (46-116); Anion Gap 10 (7-16); Aspartate Amino Transferase 33 U/L (0-34); BUN/Creatinine Ratio 10 Ratio (12-20); Bilirubin,Total 0.5 mg/dL (0.3-1.2); Blood Urea Nitrogen 5 mg/dL (9-23); Calcium (Corrected) 9.1 mg/dL (8.5-10.1); Carbon Dioxide 22.6 mMol/L (20.0-31.0); Chloride 105 mMol/L (98-107); Creatinine (Component) 0.5 mg/dL (0.6-1.3); Estimated Creatinine Clearance 94.8 mL/min (>60); Free T4 (Free Thyroxine) 1.23 ng/dL (0.89-1.76); Globulin 3.1 gm/dL (2.3-3.5); Glucose 105 mg/dL (74-106); Magnesium 1.9 mg/dL (1.6-2.6); Osmolality,Calculated 272 (275-295); Potassium 4.4 mMol/L (3.4-5.1); Procalcitonin 0.23 ng/ml (0.0-0.49); Sodium 138 mMol/L (136-145); Thyroid Stimulating Hormone 1.29 uIU/mL (0.55-4.78); eGFR > 60 See Note
[2024-05-11 08:14] LABS: Cardiac Risk Estimate 2.3 RATIO (3.7-5.6); Cholesterol 86 mg/dL (132-200); HDL Cholesterol 38 mg/dL (40-60); LDL Cholesterol,Calculated 36 mg/dL (0-130); Triglycerides 60 mg/dL (30-150)
[2024-05-11] MEDS: LACTULOSE SYRUP 20 GM/30 ML UDC 10 GM GT (09:29)
[2024-05-11] MEDS: DOXYCYCLINE INJ 100 MG in SODIUM CHLORIDE 0.9% (P) 100 ML IV ×2 (09:30→20:00)
[2024-05-11] MEDS: SENNA TABLET 1 TAB GT (09:30)
[2024-05-11] MEDS: PANTOPRAZOLE INJ 40 MG VIAL IVP (09:30)
--- NOTE | 2024-05-11 10:49 | PC.NURSE ---
MD made aware of pt increased agitation and tachycardia up to 140's. MD to place orders. will continue to monitor
[2024-05-11] MEDS: LORazepam 0.5 MG TABLET PO (12:18)
[2024-05-11] MEDS: ACETAMINOPHEN 325 MG TABLET 650 MG PO (12:23)
[2024-05-11] MEDS: PIPER/TAZO 3.375 GM 50 ML IV ×2 (13:33→21:57)
--- NOTE | 2024-05-11 15:56 | PC.DIETICIAN ---
Nutrition prescription Jevity 1.2 at 20 ml/hr via PEG tube by pump. Advance 10 ml every 8 hrs to goal rate of 60 ml/hr x 24 hrs. If no IV fluids, water flushes of 50 ml/hr (or per MD).
--- NOTE | 2024-05-11 16:55 | XR_ITS ---
Examination: Abdomen AP single view Technique: AP portable supine abdomen, single view Exam date and time: May 11, 2024 1708 hours INDICATIONS: Abdominal pain and constipation, sepsis today FINDINGS: Moderate colonic ileus Congenital left hip dysplasia Moderate to large amounts of stool in the rectosigmoid No free air Gastrostomy tube noted IMPRESSION: Moderate colonic ileus
[2024-05-11] MEDS: OLANZapine INJ 5 MG, Sterile Water 2.1 ML IM (17:14)
[2024-05-11] MEDS: bisacodyL 10 MG SUPP PR (18:16)
[2024-05-11] MEDS: BACLOFEN 10 MG TABLET 5 MG PO (20:12)
[2024-05-11] MEDS: guaiFENesin SYRUP 200 MG/10 ML UDC GT (21:57)
--- NOTE | 2024-05-11 22:05 | PC.RT ---
sputum sample collected and sent to lab.
[2024-05-12] VITALS (7 sets, daily range): BP systolic 85–105; BP diastolic 50–68; PULSE 93–153; RESP 16–98; TEMP 35.9–37.3; O2SAT 96–100; BMI 16.6
[2024-05-12] MEDS: RINGERS LACTATED 500 ML 500 ML 999 ML IV (03:34)
[2024-05-12 04:32] LABS: OBS Card Lot # 23001; OBS Developer Lot # 23003; OBS QC OK? Yes; Occult Blood, Stool Positive (Negative)
[2024-05-12] MEDS: guaiFENesin SYRUP 200 MG/10 ML UDC GT (05:24)
[2024-05-12] MEDS: PIPER/TAZO 3.375 GM 50 ML IV ×3 (05:24→22:27)
[2024-05-12] MEDS: HEPARIN SOD INJ 5000 UNIT/ML VIAL SC (05:31)
--- NOTE | 2024-05-12 06:02 | PC.NURSE ---
pt's Hr 160, BP 86/54. Dr. Lara was made aware, new order for pt for a 500 mls bolus of LR.
[2024-05-12 06:17] LABS: Basophils % (Auto) 0 % (0-2.5); Eosinophils % (Auto) 0 % (0-10); Hematocrit 31.5 % (36.0-46.0); Immature Granulocytes % (Auto) 0 % (0-0); Immature Granulocytes Auto 0.04 Thou/mm3 (0.00-0.00); Lymphocytes # (Auto) 2.4 Thou/mm3 (1.0-4.8); Lymphocytes % (Auto) 19 % (10-50); Mean Corpuscular HGB Conc 31.7 g/dl (31.0-37.0); Mean Corpuscular Hemoglobin 29.1 pg (25.0-35.0); Mean Corpuscular Volume 92 fL (80-100); Monocytes # (Auto) 1.2 Thou/mm3 (0.0-0.8); Monocytes % (Auto) 9 % (0-12); Neutrophils % (Auto) 71 % (37-80); Nucleated Red Blood Cell % 0 /100 WBC (0); Platelet Count 311 Thou/mm3 (140-440); RDW Standard Deviation 44.5 fL (36.4-46.3); Red Blood Count 3.44 Miln/mm3 (4.00-5.20); White Blood Count 12.6 Thou/mm3 (3.6-11.0)
[2024-05-12 06:32] LABS: INR 1.1 (0.9-1.3); Partial Thromboplastin Time 35.6 Seconds (22.0-36.0); Prothrombin Time 12.1 Seconds (9.0-12.2)
[2024-05-12 06:45] LABS: Alanine Aminotransferase 23 U/L (10-49); Albumin, Serum 3.4 gm/dL (3.5-5.0); Albumin/Globulin Ratio 1.3 (1.2-2.2); Alkaline Phosphatase 80 U/L (46-116); Anion Gap 8 (7-16); Aspartate Amino Transferase 38 U/L (0-34); BUN/Creatinine Ratio 18 Ratio (12-20); Bilirubin,Total 0.4 mg/dL (0.3-1.2); Blood Urea Nitrogen 9 mg/dL (9-23); Calcium 8.5 mg/dL (8.3-10.6); Carbon Dioxide 27.6 mMol/L (20.0-31.0); Chloride 103 mMol/L (98-107); Creatinine (Component) 0.5 mg/dL (0.6-1.3); Estimated Creatinine Clearance 94.8 mL/min (>60); Globulin 2.7 gm/dL (2.3-3.5); Glucose 99 mg/dL (74-106); Magnesium 1.6 mg/dL (1.6-2.6); Osmolality,Calculated 276 (275-295); Phosphorous 2.5 mg/dL (2.4-5.1); Potassium 3.3 mMol/L (3.4-5.1); Sodium 139 mMol/L (136-145); Total Protein 6.1 gm/dL (5.7-8.2); eGFR > 60 See Note
[2024-05-12] MEDS: RINGERS LACTATED 1000 ML 500 ML 999 ML IV (08:16)
[2024-05-12] MEDS: POTASSIUM CHLORIDE 10% 20 MEQ/15 ML UDC 40 MEQ GT (08:19)
[2024-05-12] MEDS: PANTOPRAZOLE INJ 40 MG VIAL IVP ×3 (08:20→21:17)
[2024-05-12] MEDS: BACLOFEN 10 MG TABLET 5 MG PO ×2 (08:20→21:23)
[2024-05-12] MEDS: DOXYCYCLINE INJ 100 MG in SODIUM CHLORIDE 0.9% (P) 100 ML IV ×2 (08:20→21:23)
[2024-05-12] MEDS: LORazepam 0.5 MG TABLET GT ×2 (09:14→17:47)
[2024-05-12] MEDS: MORPHINE SULF INJ 10 MG/ML VIAL IVP (10:44)
[2024-05-12 12:11] LABS: Hematocrit 33.3 % (36.0-46.0); Hemoglobin 10.5 g/dL (12.0-16.0)
[2024-05-12] MEDS: SODIUM CHLORIDE 0.9% 500 ML 500 ML 999 ML IV (13:31)
[2024-05-12 14:02] LABS: Lactate (Lactic Acid) 1.2 mMol/L (0.4-2.0)
--- NOTE | 2024-05-12 15:22 | ESPR_ITS ---
Documentation for date of: 05/12/24 Subjective Subjective Interval history: 05/12/2024: Overnight patient had large bowel movements with the use of bowel regimen. Patient seen this morning with low blood pressure even with IV fluid resuscitation imitated. Hemoglobin-hematocrit checked and the patient had increase of hemoglobin from 10 to 10.5. Will follow recommendations regarding further workup/intervention with GI specialist. Continuing therapy with IV antibiotics for Exam Vital Signs Temp Pulse Resp BP Pulse Ox O2 Del Method O2 Flow Rate 97.0 F 98 17 88/61 L 96 Nasal Cannula 5 05/12/24 12:00 05/12/24 12:05/12/24 12:05/12/24 12:05/12/24 12:05/12/24 12:05/12/24 12:00 Narrative Exam Physical Exam General: Awake and restless. Non-verbal at baseline, developmentally delayed. HEENT: Microcephalic, atraumatic, mucous membranes moist. Brown crusting around lips. Heart: Regular rate and rhythm, no murmurs. Lungs: Clear to auscultation with no wheezing or crackles. Abdomen: Soft, nondistended, nontender, positive bowel sounds. ?No guarding or rebound tenderness. Neurologic: Unable to access orientation, no new, gross neurological deficits, and patient able to move all 4 extremities. Extremities: No edema. Contracted extremities noted. Skin: No rash or ecchymoses. Objective Labs 05/12/24 11:48 05/12/24 05:27 Labs: Laboratory Results - last 24 hr 05/11/24 05/12/24 05/12/24 23:20 05:27 11:48 WBC 12.6 H D RBC 3.44 L Hgb 10.0 L 10.5 L Hct 31.5 L 33.3 L MCV 92 MCH 29.1 MCHC 31.7 RDW Std Deviation 44.5 Plt Count 311 Neut % (Auto) 71 Lymph % (Auto) 19 [place] % (Auto) 9 Eos % (Auto) 0 Baso % (Auto) 0 Neut # (Auto) 9.0 H Lymph # (Auto) 2.4 [place] # (Auto) 1.2 H Eos # (Auto) 0.0 Baso # (Auto) 0.0 Immature Gran # (Auto) 0.04 H Absolute Nucleated RBC 0.00 Immature Gran % 0 Nucleated RBC % 0 PT 12.1 INR 1.1 APTT 35.6 Sodium 139 Potassium 3.3 L D Chloride 103 Carbon Dioxide 27.6 Anion Gap 8 BUN 9 Creatinine 0.5 L Estim Creat Clear Calc 94.8 eGFR > 60 BUN/Creatinine Ratio 18 Glucose 99 Calculated Osmolality 276 Lactic Acid Calcium 8.5 Corrected Calcium 9.0 Phosphorus 2.5 Magnesium 1.6 Total Bilirubin 0.4 AST 38 H ALT 23 Alkaline Phosphatase 80 D Total Protein 6.1 Albumin 3.4 L D Globulin 2.7 Albumin/Globulin Ratio 1.3 Stool Occult Blood Positive A 05/12/24 13:56 WBC RBC Hgb Hct MCV MCH MCHC RDW Std Deviation Plt Count Neut % (Auto) Lymph % (Auto) [place] % (Auto) Eos % (Auto) Baso % (Auto) Neut # (Auto) Lymph # (Auto) [place] # (Auto) Eos # (Auto) Baso # (Auto) Immature Gran # (Auto) Absolute Nucleated RBC Immature Gran % Nucleated RBC % PT INR APTT Sodium Potassium Chloride Carbon Dioxide Anion Gap BUN Creatinine Estim Creat Clear Calc eGFR BUN/Creatinine Ratio Glucose Calculated Osmolality Lactic Acid 1.2 Calcium Corrected Calcium Phosphorus Magnesium Total Bilirubin AST ALT Alkaline Phosphatase Total Protein Albumin Globulin Albumin/Globulin Ratio Stool Occult Blood Quality Measures Quality Measures sepsis Current suspected stage: sepsis Possible source: pulmonary Blood cultures ordered: yes Antibiotic ordered: Yes and none Assessment & Plan Assessment Current Active Medications: Generic Name Dose Route Start Last Admin Trade Name Freq PRN Reason Stop Dose Admin Acetaminophen 650 mg 05/11/24 02:00 05/11/24 06:18 Acetaminophen Supp 650 Mg Supp RI 06/10/24 01:59 650 mg Q6HR PRN Administration [id number] Protocol Acetaminophen 650 mg 05/11/24 12:10 05/11/24 12:23 Acetaminophen 325 Mg Tablet PO 06/10/24 12:09 650 mg Q6H PRN Administration Fever > 100.4 Protocol Baclofen 5 mg 05/11/24 21:00 05/12/24 08:20 Baclofen 10 Mg Tablet PO 06/10/24 20:59 5 mg BID OLAMIDE Administration Guaifenesin 200 mg 05/11/24 02:16 05/12/24 05:24 Guaifenesin Syrup 200 Mg/10 Ml Udc GT 06/10/24 02:15 200 mg QID PRN Administration COUGH OR CONGESTION Protocol Heparin Sodium (Porcine) 5,000 unit 05/11/24 06:00 05/12/24 05:31 Heparin Sod Inj 5000 Unit/Ml Vial SC 05/25/24 05:59 5,000 unit Q8HR OLAMIDE Administration Piperacillin/Tazobactam/Dextrose 50 mls @ 12.5 mls/hr 05/11/24 14:00 05/12/24 13:32 Zosyn IV 05/18/24 13:59 12.5 mls/hr Q8HR OLAMIDE Administration Protocol Doxycycline Hyclate 100 mg/ 100 mls @ 100 mls/hr 05/11/24 09:00 05/12/24 08:20 Sodium Chloride IV 05/18/24 08:59 100 mls/hr BID OLAMIDE Administration Lactulose 10 gm 05/11/24 09:00 05/11/24 09:29 Lactulose Syrup 20 Gm/30 Ml Udc GT 06/10/24 08:59 10 gm QDAY OLAMIDE Administration Protocol Lorazepam 0.5 mg 05/11/24 16:33 05/12/24 09:14 Lorazepam 0.5 Mg Tablet GT 05/16/24 12:08 0.5 mg Q6H PRN Administration AGITATION OR ANXIETY Pantoprazole Sodium 40 mg 05/12/24 09:00 05/12/24 09:14 Pantoprazole Inj 40 Mg Vial IVP 06/11/24 08:59 40 mg BID OLAMIDE Administration Sennosides 1 tab 05/11/24 09:00 05/11/24 09:30 Senna Tablet GT 06/10/24 08:59 1 tab QDAY OLAMIDE Administration Protocol Plan 23-year-old female who is nonverbal at baseline, with past medical history of developmental delay due to cerebral palsy, seizure disorder (not on AED), anxiety, chronically bedbound with PEG tube, who presented to [facility] ED from [facility] on 05/10/24 with a chief complaint of tachycardia. Patient admitted to hospital for acute hypoxic respiratory failure and sepsis secondary to pneumonia. #Concern for Possible Upper GI Bleed Patient continues to be agitated and seems to be in acute distress Patient noted to have brown discharge from PEG tube site FOBT positive Hemoglobin and hematocrit trended went from 10-10.5 Plan: Holding DVT prophylaxis at this time N.p.o. Protonix 40 mg IV twice daily GI consulted, appreciate recommendations #Acute hypoxic respiratory failure #Sepsis secondary to pneumonia, SIRS 3/4 #Bibasilar pneumonia, healthcare associated pneumonia versus aspiration pneumonia Patient not on any oxygen at baseline, presented with tachycardia, met SIRS criteria 3/4, P 167, RR 35, temp 102.2, chest x-ray significant for early pneumonia, CT abdomen pelvis shows mild bibasilar pneumonia, patient on 2 L nasal cannula to maintain SpO2 more than 92 and has productive cough. Patient did not have vomiting yesterday, concern of aspiration pneumonia. RSV, flu, COVID panel negative Sputum culture/Gram stain 3+ WBCs Occasional Gram Variable Rods Blood cultures NG within 24 hours Plan: Continue on IV Zosyn; discontinued Doxycycline MRSA pending Urines cultures pending Supplemental oxygen as needed Guaifenesin as needed for cough Tylenol as needed for fever #Colonic ileus, abundant stool - resolved CT abdomen pelvis significant for abundant stool in rectosigmoid, concern of colonic ileus. Per patient's ged preparation teacher last bowel movement was yesterday morning, no concern of constipation. Patient had 2 BM overnight after having lactulose and senna Plan: Holding bowel regimen at this time #Severe protein calorie malnutrition #Status post PEG tube placement Patient's BMI 16.7, weight 34.9 kg, has PEG tube intact Plan: Following registered dietitian recs #Developmental delay secondary to cerebral palsy #Seizure disorder #Anxiety #Agitated Patient not on any antiepileptic drugs Pending med reconciliation, resume home meds as needed x1 of Olanzapine given Baclofen restarted #Left renal calculus As evidenced on CT abdomen/pelvis Plan: Outpatient follow-up Hospital Management: Diet: NPO Lines: Peripheral IV GI prophylaxis: Protonix IV daily DVT prophylaxis: Heparin every 8 hours Dispo: Pending GI recs Code status: Full code Patient seen and examined with attending Dr. Tsering Koehler, PGY-1 Attending Provider Attestation/Addendum I have discussed and was present for the essential components of the history, physical examination, diagnosis, and treatment plan with the resident. I agree with the patient's care as documented by the resident and amended herein by me. Eze Cagle DO. Overnight patient did receive Ativan for agitation hence patient was more somnolent in the a.m., blood pressure on the softer side this morning 89/62, 500 mL bolus given, patient also slightly tacky with a pulse of 103. Significant labs include a WBC of 12.6, stable hemoglobin of 10, potassium low at 3.3. The patient was exhibiting brown vomitus yesterday which I observed myself, FOBT was positive. At this time we will consult GI for possible GI bleed, increase Protonix to 40 mg twice daily, hold tube feeds for now, I will give an additional 500 mL bolus and continue pain control. Patient will also continue on Zosyn for now, will continue to follow with cultures. Will continue to monitor closely. Although this document has been carefully reviewed, there may still be some phonetic and other typographical errors. These errors are purely grammatical due to imperfections in the software program and should not be construed in any way to compromise the substance of the patient's medical care during this visit.
--- NOTE | 2024-05-12 16:30 | PC.NURSE ---
Care providers at bedside patient was fine.
--- NOTE | 2024-05-12 17:53 | PC.NURSE ---
I was in another patients room when I was notified patient is crying and bit her lower lip. I pushed ativan for anxiety will continue to monitor patient.
--- NOTE | 2024-05-12 17:54 | PC.NURSE ---
I was in anothers patient room when I was notified patient was crying and bit her lower lip. I pushed ativan for anxiety. Will continue to moniotor patient. Looking for an avasure for patient safety.
--- NOTE | 2024-05-12 18:04 | PC.NURSE ---
[facility] SURE IN PLACE FOR SAFETY. WILL CONTINUE TO MONITOR
--- NOTE | 2024-05-12 18:12 | PC.NURSE ---
NOTIFIED ETH[employer] CARE PROVIDER AND TOLD HER ABOUT PATIENT CRYING AND BITTING HER LIP. SHE NOTIFIED ME THAT IS ONE OF THE PATIENTS BEHAVIORS. TO TOUCH BOTTOM LIP AND PUCKER IT. PATIENT WILL STOP BITING HERSELF AND LET GO OF HER LIP. I NOTIFIED HER [facility] IS IN PLACE FOR PATIENTS SAFETY. IT WOULD BE A GOOD IDEA IF SOMEONE CAN COME AND SIT AT BED SIDE WITH PATIENT. SHE NOTIFIED ME THEY DONT HAVE THE STAFF AVAILABLE. SHE WOULD NOTIFY HER BOSS AND SEE WHAT THEY CAN DO. WILL CONTINUE TO MONITOR PATIENT
--- NOTE | 2024-05-12 22:28 | PD.IMCONS ---
HPI Data of Consult Requesting Physician: Gloria Patricio MD Primary Care Provider: Physician No Primary/Family Consult Narrative Reason for consult: coffee-ground hematemesis, anemia History of present illness: 23 years old female brought to the emergency room because of tachycardia She had an episode of vomiting the day before at her care facility and the members at the facility felt that she might have aspirated She initially required 6 mg of adenosine followed by [address] scan of the abdomen pelvis and chest x-ray showed bilateral pneumonia Patient met the SIRS criteria for started on IV antibiotics During the course of the hospitalization she had coffee-ground hematemesis as well as check to be FOBT positive Hemoglobin hematocrit on admission 11.2 and 35.0 which is gone down to 10.5 and 33.3 with a platelet count of 311,000 She has a history of developmental delay due to cerebral palsy nonverbal seizure disorder status post PEG placement cc:: cc: Gloria Patricio MD Review of Systems Review of Systems ROS Unobtainable: unobtainable due to medical condition Past Medical History Surgical History OTHER SURGICAL HX: As in the history of present illness Meds Home Medications and Allergies Home Medications ?Medication ?Instructions ?Recorded ?Confirmed ?Type acetaminophen 325 mg tablet 650 mg feeding tube Q4H PRN Fever 07/04/19 08/11/23 History (Tylenol) Or Pain albuterol sulfate 90 mcg/actuation 2 puff inhalation QID PRN 07/04/19 08/11/23 History aerosol inhaler (Ventolin HFA) shortness of breath docusate sodium 50 mg/5 mL oral 100 mg feeding tube BID 07/04/19 08/11/23 History liquid simethicone 40 mg/0.6 mL oral 1 drp feeding tube UD 07/04/19 08/11/23 History drops,suspension therapeutic multivitamin 1 tab feeding tube QDAY 07/04/19 08/11/23 History (Thera-Tabs tablet) dextromethorphan 5 mg-guaifenesin 5 ml PO Q8HR PRN Cough 07/05/19 08/11/23 History 50 mg/5 mL oral liquid (Robitussin Cough-Chest Congestion DM) Allergies Allergy/AdvReac Type Severity Reaction Status Date / Time No Known Allergies Allergy Verified 08/10/23 19:50 Exam Vital Signs Temp Pulse Resp BP Pulse Ox O2 Del Method O2 Flow Rate 97.7 F 107 H 16 99/68 100 Nasal Cannula 3 05/12/24 20:00 05/12/24 20:00 05/12/24 20:00 05/12/24 20:00 05/12/24 20:00 05/12/24 20:00 05/12/24 20:00 Constitutional Comments: Chronically ill-appearing Routine Respiratory Exam Comments: Decreased bases of the bases and rhonchi Results Labs 05/12/24 11:48 05/12/24 05:27 Labs: Short CBC 05/12/24 05/12/24 Range/Units 05:27 11:48 WBC 12.6 H D (3.6-11.0) Thou/mm3 Hgb 10.0 L 10.5 L (12.0-16.0) g/dL Hct 31.5 L 33.3 L (36.0-46.0) % Plt Count 311 (140-440) Thou/mm3 BMP 05/12/24 05:27 Sodium 139 Potassium 3.3 L D Chloride 103 Carbon Dioxide 27.6 BUN 9 Creatinine 0.5 L Glucose 99 Calcium 8.5 Liver Function 05/12/24 Range/Units 05:27 Total Bilirubin 0.4 (0.3-1.2) mg/dL AST 38 H (0-34) U/L ALT 23 (10-49) U/L Alkaline Phosphatase 80 D (46-116) U/L Albumin 3.4 L D (3.5-5.0) gm/dL Assessment and Plan Additional Assessment & Plan Additional Plan: # Coffee-ground hematemesis # FOBT positive Plan N.p.o. midnight tonight except meds via the PEG tube Consent from the wastewater treatment engineer for fiberoptic esophagogastroduodenoscopy with possible therapeutic intervention under intravenous moderate sedation scheduled for tomorrow will follow-up with patient thank you very much for the opportunity to participate in care of this patient
[2024-05-13] VITALS (16 sets, daily range): BP systolic 91–110; BP diastolic 61–80; PULSE 93–147; RESP 15–27; TEMP 36.5–37.2; O2SAT 91–99
[2024-05-13] MEDS: PIPER/TAZO 3.375 GM 50 ML IV ×3 (05:10→22:00)
[2024-05-13 05:50] LABS: Basophils % (Auto) 0 % (0-2.5); Eosinophils # (Auto) 0.1 Thou/mm3 (0.0-0.5); Eosinophils % (Auto) 1 % (0-10); Hematocrit 32.2 % (36.0-46.0); Hemoglobin 10.1 g/dL (12.0-16.0); Immature Granulocytes % (Auto) 0 % (0-0); Immature Granulocytes Auto 0.04 Thou/mm3 (0.00-0.00); Lymphocytes # (Auto) 2.4 Thou/mm3 (1.0-4.8); Lymphocytes % (Auto) 26 % (10-50); Mean Corpuscular HGB Conc 31.4 g/dl (31.0-37.0); Mean Corpuscular Hemoglobin 28.9 pg (25.0-35.0); Mean Corpuscular Volume 92 fL (80-100); Monocytes # (Auto) 0.9 Thou/mm3 (0.0-0.8); Monocytes % (Auto) 9 % (0-12); Neutrophils # (Auto) 5.9 Thou/mm3 (1.8-7.7); Neutrophils % (Auto) 63 % (37-80); Nucleated Red Blood Cell % 0 /100 WBC (0); Platelet Count 309 Thou/mm3 (140-440); RDW Standard Deviation 45.1 fL (36.4-46.3); White Blood Count 9.4 Thou/mm3 (3.6-11.0)
[2024-05-13 06:47] LABS: Alanine Aminotransferase 39 U/L (10-49); Albumin, Serum 3.5 gm/dL (3.5-5.0); Albumin/Globulin Ratio 1.2 (1.2-2.2); Alkaline Phosphatase 79 U/L (46-116); Anion Gap 11 (7-16); Aspartate Amino Transferase 63 U/L (0-34); BUN/Creatinine Ratio 18 Ratio (12-20); Bilirubin,Total 0.3 mg/dL (0.3-1.2); Blood Urea Nitrogen 9 mg/dL (9-23); Calcium 8.6 mg/dL (8.3-10.6); Carbon Dioxide 25.5 mMol/L (20.0-31.0); Chloride 104 mMol/L (98-107); Creatinine (Component) 0.5 mg/dL (0.6-1.3); Glucose 67 mg/dL (74-106); Magnesium 1.7 mg/dL (1.6-2.6); Osmolality,Calculated 276 (275-295); Phosphorous 2.7 mg/dL (2.4-5.1); Potassium 3.9 mMol/L (3.4-5.1); Sodium 140 mMol/L (136-145); Total Protein 6.5 gm/dL (5.7-8.2); eGFR > 60 See Note
[2024-05-13] MEDS: BACLOFEN 10 MG TABLET 5 MG PO ×2 (08:00→20:17)
[2024-05-13] MEDS: DOXYCYCLINE INJ 100 MG in SODIUM CHLORIDE 0.9% (P) 100 ML IV (08:00)
[2024-05-13] MEDS: PANTOPRAZOLE INJ 40 MG VIAL IVP ×2 (08:01→20:17)
--- NOTE | 2024-05-13 09:42 | PC.SS ---
Follow up note: Pt wll have NARINDER gonzalez. Pt will return to her [facility] at d[facility]
[2024-05-13] MEDS: Magnesium Sulfate 4 GM Ivpb 4 GM/50 ML BAG IV (10:29)
[2024-05-13] MEDS: LORazepam 0.5 MG TABLET GT (11:34)
--- NOTE | 2024-05-13 11:50 | PD.RESPRO ---
Documentation for date of: 05/13/24 Subjective Subjective Interval history: 05/13/2024: No acute overnight events to report. Patient seen and examined this a.m. appears to be much less agitated than previously noted. Patient's heart rate continues to be elevated around 1 10-1 20; however, patient's WBC count has been downtrending from 12.6-9.4 and she continues to be treated with IV antibiotics for the pneumonia. Dr. Bejarano, gastroenterology, was consulted and his recommendation is to workup the patient for upper GI bleed with an upper endoscopy. Staff territory sales manager medical at [facility] has been made aware and has given consent for the procedure. Patient will have upper endoscopy this afternoon (05/13). Exam Vital Signs Temp Pulse Resp BP Pulse Ox O2 Del Method O2 Flow Rate 98.0 F 112 H 20 98/69 99 Nasal Cannula 2 05/13/24 08:00 05/13/24 08:00 05/13/24 08:00 05/13/24 08:00 05/13/24 08:00 05/13/24 08:00 05/13/24 08:00 Narrative Exam Physical Exam General: Awake and less restless. Non-verbal at baseline, developmentally delayed. HEENT: Microcephalic, atraumatic, mucous membranes moist. Brown crusting around lips. Heart: Regular rate and rhythm, no murmurs. Lungs: Clear to auscultation with no wheezing or crackles. Abdomen: Soft, nondistended, nontender, positive bowel sounds. ?No guarding or rebound tenderness. Neurologic: Unable to access orientation, no new, gross neurological deficits, and patient able to move all 4 extremities. Extremities: No edema. Contracted extremities noted. Skin: No rash or ecchymoses. Objective Labs 05/13/24 04:59 05/13/24 04:59 Labs: Laboratory Results - last 24 hr 05/12/24 05/12/24 05/13/24 11:48 13:56 04:59 WBC 9.4 RBC 3.50 L Hgb 10.5 L 10.1 L Hct 33.3 L 32.2 L MCV 92 MCH 28.9 MCHC 31.4 RDW Std Deviation 45.1 Plt Count 309 Neut % (Auto) 63 Lymph % (Auto) 26 [place] % (Auto) 9 Eos % (Auto) 1 Baso % (Auto) 0 Neut # (Auto) 5.9 Lymph # (Auto) 2.4 [place] # (Auto) 0.9 H Eos # (Auto) 0.1 Baso # (Auto) 0.0 Immature Gran # (Auto) 0.04 H Absolute Nucleated RBC 0.00 Immature Gran % 0 Nucleated RBC % 0 Sodium 140 Potassium 3.9 D Chloride 104 Carbon Dioxide 25.5 Anion Gap 11 BUN 9 Creatinine 0.5 L Estim Creat Clear Calc 94.0 eGFR > 60 BUN/Creatinine Ratio 18 Glucose 67 L Calculated Osmolality 276 Lactic Acid 1.2 Calcium 8.6 Corrected Calcium 9.0 Phosphorus 2.7 Magnesium 1.7 Total Bilirubin 0.3 AST 63 H ALT 39 Alkaline Phosphatase 79 Total Protein 6.5 Albumin 3.5 Globulin 3.0 Albumin/Globulin Ratio 1.2 Quality Measures Quality Measures sepsis Current suspected stage: sepsis Possible source: pulmonary Blood cultures ordered: yes Antibiotic ordered: Yes and none Assessment & Plan Assessment Current Active Medications: Generic Name Dose Route Start Last Admin Trade Name Freq PRN Reason Stop Dose Admin Acetaminophen 650 mg 05/11/24 02:00 05/11/24 06:18 Acetaminophen Supp 650 Mg Supp VA 06/10/24 01:59 650 mg Q6HR PRN Administration [id number] Protocol Acetaminophen 650 mg 05/11/24 12:10 05/11/24 12:23 Acetaminophen 325 Mg Tablet PO 06/10/24 12:09 650 mg Q6H PRN Administration Fever > 100.4 Protocol Baclofen 5 mg 05/11/24 21:00 05/13/24 08:00 Baclofen 10 Mg Tablet PO 06/10/24 20:59 5 mg BID OLAMIDE Administration Guaifenesin 200 mg 05/11/24 02:16 05/12/24 05:24 Guaifenesin Syrup 200 Mg/10 Ml Udc GT 06/10/24 02:15 200 mg QID PRN Administration COUGH OR CONGESTION Protocol Heparin Sodium (Porcine) 5,000 unit 05/11/24 06:00 05/12/24 05:31 Heparin Sod Inj 5000 Unit/Ml Vial SC 05/25/24 05:59 5,000 unit Q8HR OLAMIDE Administration Piperacillin/Tazobactam/Dextrose 50 mls @ 12.5 mls/hr 05/11/24 14:00 05/13/24 05:10 Zosyn IV 05/18/24 13:59 12.5 mls/hr Q8HR OLAMIDE Administration Protocol Magnesium Sulfate 4 gm in 50 mls @ 12.5 mls/hr 05/13/24 08:20 05/13/24 10:29 Magnesium Sulfate Ivpb IV 05/13/24 12:19 12.5 mls/hr X1 ONE Administration Lactulose 10 gm 05/11/24 09:00 05/11/24 09:29 Lactulose Syrup 20 Gm/30 Ml Udc GT 06/10/24 08:59 10 gm QDAY OLAMIDE Administration Protocol Lorazepam 0.5 mg 05/11/24 16:33 05/12/24 17:47 Lorazepam 0.5 Mg Tablet GT 05/16/24 12:08 0.5 mg Q6H PRN Administration AGITATION OR ANXIETY Pantoprazole Sodium 40 mg 05/12/24 09:00 05/13/24 08:01 Pantoprazole Inj 40 Mg Vial IVP 06/11/24 08:59 40 mg BID OLAMIDE Administration Sennosides 1 tab 05/11/24 09:00 05/11/24 09:30 Senna Tablet GT 06/10/24 08:59 1 tab QDAY OLAMIDE Administration Protocol Plan 23-year-old female who is nonverbal at baseline, with past medical history of developmental delay due to cerebral palsy, seizure disorder (not on AED), anxiety, chronically bedbound with PEG tube, who presented to [facility] ED from [facility] on 05/10/24 with a chief complaint of tachycardia. Patient admitted to hospital for acute hypoxic respiratory failure and sepsis secondary to pneumonia. #Concern for Possible Upper GI Bleed Patient continues to be agitated and seems to be in acute distress Patient noted to have brown discharge from PEG tube site FOBT positive Hemoglobin and hematocrit trended went from 10-10.5 Was given IV fluid resuscitation for hypotension which only marginally helped. GI consulted, appreciate recommendations Plan: Patient will have upper endoscopy for possible upper GI bleed with Dr. Bejarano this afternoon (05/13) Holding DVT prophylaxis at this time N.p.o. Protonix 40 mg IV twice daily #Acute hypoxic respiratory failure #Sepsis secondary to pneumonia, SIRS 3/4 #Bibasilar pneumonia, healthcare associated pneumonia versus aspiration pneumonia #Leukocytosis, improving Patient not on any oxygen at baseline, presented with tachycardia, met SIRS criteria 3/4, P 167, RR 35, temp 102.2, chest x-ray significant for early pneumonia, CT abdomen pelvis shows mild bibasilar pneumonia, patient on 2 L nasal cannula to maintain SpO2 more than 92 and has productive cough. Patient did not have vomiting yesterday, concern of aspiration pneumonia. RSV, flu, COVID panel negative Sputum culture/Gram stain 3+ WBCs Occasional Gram Variable Rods Blood cultures NG within 48 hours MRSA nares negative and urine cultures no growth Plan: Continue on IV Zosyn Supplemental oxygen as needed Guaifenesin as needed for cough Tylenol as needed for fever #Colonic ileus, abundant stool - resolved CT abdomen pelvis significant for abundant stool in rectosigmoid, concern of colonic ileus. Per patient's apartment groundskeeper last bowel movement was yesterday morning, no concern of constipation. Patient had 2 BM overnight after having lactulose and senna Plan: Holding bowel regimen at this time #Severe protein calorie malnutrition #Status post PEG tube placement Patient's BMI 16.7, weight 34.9 kg, has PEG tube intact Plan: Following registered dietitian recs #Developmental delay secondary to cerebral palsy #Seizure disorder #Anxiety #Agitated Patient not on any antiepileptic drugs Pending med reconciliation, resume home meds as needed x1 of Olanzapine given Baclofen restarted #Left renal calculus As evidenced on CT abdomen/pelvis Plan: Outpatient follow-up Hospital Management: Diet: NPO Lines: Peripheral IV GI prophylaxis: Protonix IV daily DVT prophylaxis: Heparin every 8 hours Dispo: Pending GI recs Code status: Full code Patient seen and examined with attending Dr. Tsering Koehler, PGY-1 Attending Provider Attestation/Addendum I have discussed and was present for the essential components of the history, physical examination, diagnosis, and treatment plan with the resident. I agree with the patient's care as documented by the resident and amended herein by me. Eze Cagle DO. Patient seen and evaluated this AM. Patient tachycardic, pulse 112, afebrile overnight, NC 2 L, SpO2 94%. WBC 10, all other labs for the most part unremarkable. Gastroenterology consulted for GI bleed, EGD later today, will continue Protonix and meds through PEG tube for now, will also continue Zosyn for pneumonia. Patient's caregiver from her facility was at bedside today, I explained her situation and plan going forward, all questions answered. Will continue to monitor closely. Of note the caregiver did state that the patient will respond to yes/no questions by her eye movements, with upward movement being yes and downward movement being no which may be helpful. Will continue to monitor closely. Although this document has been carefully reviewed, there may still be some phonetic and other typographical errors. These errors are purely grammatical due to imperfections in the software program and should not be construed in any way to compromise the substance of the patient's medical care during this visit.
--- NOTE | 2024-05-13 12:49 | PC.NURSE ---
RN called [facility] two times to gain consent for this pt to have a procedure done today. Rn was unable to speak to anyone at [facility]. Will attempt to call back at a later time
--- NOTE | 2024-05-13 18:35 | SUR.PHASEI ---
1835 patient arrived to recovery, report received from Vanessa MARIE
--- NOTE | 2024-05-13 19:19 | SUR.PHASEI ---
1905 Report given to Gabriel MARIE, patient meets discharge criteria from recovery, awake and on oxygen 4L via nasal cannula, breathing unlabored, vital signs stable, appearing comfortable. 191 Patient transported via rney to room 373 without incident, staff arrived to assist with transferring patient from rney to bed, staff with patient when this underwriter left patients room
--- NOTE | 2024-05-13 22:19 | PD.EVENT ---
Documentation for date of: 05/13/24 Event Note Event Note: The report of the upper endoscopy is on front of the chart as the GI dictation system for procedure Is not communicating with the [employer] system so the internal medicine team will not see the report in the [employer] system
[2024-05-14] VITALS (8 sets, daily range): BP systolic 89–108; BP diastolic 55–69; PULSE 93–140; RESP 18–28; TEMP 36.4–37.7; O2SAT 92–100
[2024-05-14] MEDS: LORazepam 0.5 MG TABLET GT ×3 (01:49→20:32)
[2024-05-14] MEDS: PIPER/TAZO 3.375 GM 50 ML IV ×3 (05:16→22:41)
[2024-05-14 05:58] LABS: Basophils % (Auto) 0 % (0-2.5); Eosinophils # (Auto) 0.1 Thou/mm3 (0.0-0.5); Eosinophils % (Auto) 1 % (0-10); Hematocrit 30.4 % (36.0-46.0); Hemoglobin 9.4 g/dL (12.0-16.0); Immature Granulocytes % (Auto) 0 % (0-0); Immature Granulocytes Auto 0.02 Thou/mm3 (0.00-0.00); Lymphocytes # (Auto) 1.9 Thou/mm3 (1.0-4.8); Lymphocytes % (Auto) 33 % (10-50); Mean Corpuscular HGB Conc 30.9 g/dl (31.0-37.0); Mean Corpuscular Hemoglobin 28.3 pg (25.0-35.0); Mean Corpuscular Volume 92 fL (80-100); Monocytes # (Auto) 0.9 Thou/mm3 (0.0-0.8); Monocytes % (Auto) 15 % (0-12); Neutrophils % (Auto) 51 % (37-80); Nucleated Red Blood Cell % 0 /100 WBC (0); Platelet Count 271 Thou/mm3 (140-440); RDW Standard Deviation 43.3 fL (36.4-46.3); Red Blood Count 3.32 Miln/mm3 (4.00-5.20); White Blood Count 5.8 Thou/mm3 (3.6-11.0)
[2024-05-14 06:52] LABS: Alanine Aminotransferase 34 U/L (10-49); Albumin, Serum 3.2 gm/dL (3.5-5.0); Albumin/Globulin Ratio 1.3 (1.2-2.2); Alkaline Phosphatase 77 U/L (46-116); Anion Gap 8 (7-16); Aspartate Amino Transferase 46 U/L (0-34); BUN/Creatinine Ratio 28 Ratio (12-20); Bilirubin,Total 0.2 mg/dL (0.3-1.2); Blood Urea Nitrogen 11 mg/dL (9-23); Calcium (Corrected) 8.6 mg/dL (8.5-10.1); Carbon Dioxide 27.1 mMol/L (20.0-31.0); Chloride 104 mMol/L (98-107); Creatinine (Component) 0.4 mg/dL (0.6-1.3); Estimated Creatinine Clearance 114.6 mL/min (>60); Globulin 2.5 gm/dL (2.3-3.5); Glucose 92 mg/dL (74-106); Osmolality,Calculated 276 (275-295); Phosphorous 2.8 mg/dL (2.4-5.1); Potassium 3.8 mMol/L (3.4-5.1); Sodium 139 mMol/L (136-145); Total Protein 5.7 gm/dL (5.7-8.2); eGFR > 60 See Note
--- NOTE | 2024-05-14 08:51 | PC.SS ---
Late note 05-13-24: Pt is non verbal.? Pt is from [facility].? SS met with caregiver, Josh at bedside regarding patient's d/c plan.? Caregiver confirmed patient's demographic and contact information is correct on her facesheet.? Pt was admitted for AHRF, Sepsis 2/2 PNA.? Per caregiver, pt is non ambulatory.? Pt transfers with assistance and saritha lift into special chair.? Pt requires assistance with all ADLs.? Pt is on 2 liters of O2. Pt does not utilizes O2 at home. Per caregiver, pt is able to have O2 at home if required. Per caregiver, [facility] is patient's medical decision maker.? Patient's rn case management from [facility] is Maryann Guillermo.? Patient followed up with PCP in April,.? [facility] and will require assistance.? DC Plan:? Return home Emergency Contact:? [facility] phone# [phone] PCP: Dr. Mayo from [facility] Address:? Correct on facesheet
[2024-05-14] MEDS: PANTOPRAZOLE INJ 40 MG VIAL IVP ×2 (09:52→20:32)
[2024-05-14] MEDS: BACLOFEN 10 MG TABLET 5 MG PO ×2 (12:46→20:32)
--- NOTE | 2024-05-14 13:32 | PD.RESPRO ---
Documentation for date of: 05/14/24 Subjective Subjective Interval history: 05/14/2024: Overnight patient apparently pulled PEG tube; moreover, nurse apparently was able to put the PEG tube back in place. This morning, patient seen and examined and appears to be in similar baseline presentation. PEG tube site inspected and the tube appears to be in place but surrounding region does not seem stable. Gastroenterology, Dr. Bejarano, is on the case and will inspect the PEG tube and recommend whether or not he needs to be replaced. Patient's PEG tube feeds have been stopped; moreover, gastroenterology states that medications are okay to use. Will continue to monitor for any acute changes. Exam Vital Signs Temp Pulse Resp BP Pulse Ox O2 Del Method O2 Flow Rate 97.6 F 119 H 18 101/59 L 97 Nasal Cannula 2 05/14/24 12:00 05/14/24 12:00 05/14/24 12:00 05/14/24 12:00 05/14/24 12:00 05/14/24 12:05/14/24 12:00 Narrative Exam Physical Exam General: Awake and less restless. Non-verbal at baseline, developmentally delayed. HEENT: Microcephalic, atraumatic, mucous membranes moist. Brown crusting around lips. Heart: Regular rate and rhythm, no murmurs. Lungs: Clear to auscultation with no wheezing or crackles. Abdomen: Soft, nondistended, nontender, positive bowel sounds. ?No guarding or rebound tenderness. Neurologic: Unable to access orientation, no new, gross neurological deficits, and patient able to move all 4 extremities. Extremities: No edema. Contracted extremities noted. Skin: No rash or ecchymoses. Objective Labs 05/14/24 05:00 05/14/24 05:00 Labs: Laboratory Results - last 24 hr 05/14/24 05:00 WBC 5.8 RBC 3.32 L Hgb 9.4 L Hct 30.4 L MCV 92 MCH 28.3 MCHC 30.9 L RDW Std Deviation 43.3 Plt Count 271 D Neut % (Auto) 51 Lymph % (Auto) 33 [place] % (Auto) 15 H Eos % (Auto) 1 Baso % (Auto) 0 Neut # (Auto) 3.0 Lymph # (Auto) 1.9 [place] # (Auto) 0.9 H Eos # (Auto) 0.1 Baso # (Auto) 0.0 Immature Gran # (Auto) 0.02 H Absolute Nucleated RBC 0.00 Immature Gran % 0 Nucleated RBC % 0 Sodium 139 Potassium 3.8 Chloride 104 Carbon Dioxide 27.1 Anion Gap 8 BUN 11 Creatinine 0.4 L Estim Creat Clear Calc 114.6 eGFR > 60 BUN/Creatinine Ratio 28 H Glucose 92 Calculated Osmolality 276 Calcium 8.0 L Corrected Calcium 8.6 Phosphorus 2.8 Total Bilirubin 0.2 L AST 46 H ALT 34 Alkaline Phosphatase 77 Total Protein 5.7 Albumin 3.2 L Globulin 2.5 Albumin/Globulin Ratio 1.3 Quality Measures Quality Measures sepsis Current suspected stage: ruled out Possible source: pulmonary Blood cultures ordered: yes Antibiotic ordered: Yes and none Assessment & Plan Assessment Current Active Medications: Generic Name Dose Route Start Last Admin Trade Name Freq PRN Reason Stop Dose Admin Acetaminophen 650 mg 05/11/24 02:00 05/11/24 06:18 Acetaminophen Supp [address] 06/10/24 01:59 650 mg Q6HR PRN Administration [id number] Protocol Acetaminophen 650 mg 05/11/24 12:10 05/11/24 12:23 Acetaminophen 325 Mg Tablet PO 06/10/24 12:09 650 mg Q6H PRN Administration Fever > 100.4 Protocol Baclofen 5 mg 05/11/24 21:00 05/14/24 09:38 Baclofen 10 Mg Tablet PO 06/10/24 20:59 Not Given BID OLAMIDE Guaifenesin 200 mg 05/11/24 02:16 05/12/24 05:24 Guaifenesin Syrup 200 Mg/10 Ml Udc GT 06/10/24 02:15 200 mg QID PRN Administration COUGH OR CONGESTION Protocol Heparin Sodium (Porcine) 5,000 unit 05/11/24 06:00 05/12/24 05:31 Heparin Sod Inj 5000 Unit/Ml Vial SC 05/25/24 05:59 5,000 unit Q8HR OLAMIDE Administration Piperacillin/Tazobactam/Dextrose 50 mls @ 12.5 mls/hr 05/11/24 14:00 05/14/24 05:16 Zosyn IV 05/18/24 13:59 12.5 mls/hr Q8HR OLAMIDE Administration Protocol Lactulose 10 gm 05/11/24 09:00 05/11/24 09:29 Lactulose Syrup 20 Gm/30 Ml Udc GT 06/10/24 08:59 10 gm QDAY OLAMIDE Administration Protocol Lorazepam 0.5 mg 05/11/24 16:33 05/14/24 01:49 Lorazepam 0.5 Mg Tablet GT 05/16/24 12:08 0.5 mg Q6H PRN Administration AGITATION OR ANXIETY Pantoprazole Sodium 40 mg 05/12/24 09:00 05/14/24 09:52 Pantoprazole Inj 40 Mg Vial IVP 06/11/24 08:59 40 mg BID OLAMIDE Administration Sennosides 1 tab 05/11/24 09:00 05/11/24 09:30 Senna Tablet GT 06/10/24 08:59 1 tab QDAY OLAMIDE Administration Protocol Plan 23-year-old female who is nonverbal at baseline, with past medical history of developmental delay due to cerebral palsy, seizure disorder (not on AED), anxiety, chronically bedbound with PEG tube, who presented to [facility] ED from [facility] on 05/10/24 with a chief complaint of tachycardia. Patient admitted to hospital for acute hypoxic respiratory failure and sepsis secondary to pneumonia. #Concern for Possible Upper GI Bleed #PEG tube dislodgment? Patient continues to be agitated and seems to be in acute distress Patient noted to have brown discharge from PEG tube site FOBT positive Hemoglobin and hematocrit trended went from 10-10.5 Was given IV fluid resuscitation for hypotension which only marginally helped. GI consulted, appreciate recommendations Upper endoscopy showed esophageal ulceration with recent stigmata of bleeding, no direct intervention done Plan: Gastroenterology recommends stopping tube feeds, medications okay Gastroenterology will assess PEG tube site placement Continue IV Protonix Started patient on sucralfate 1 g 4 times daily #Acute hypoxic respiratory failure #Sepsis secondary to pneumonia, SIRS 3/4 #Bibasilar pneumonia, healthcare associated pneumonia versus aspiration pneumonia #Leukocytosis, improving Patient not on any oxygen at baseline, presented with tachycardia, met SIRS criteria 3/4, P 167, RR 35, temp 102.2, chest x-ray significant for early pneumonia, CT abdomen pelvis shows mild bibasilar pneumonia, patient on 2 L nasal cannula to maintain SpO2 more than 92 and has productive cough. Patient did not have vomiting yesterday, concern of aspiration pneumonia. RSV, flu, COVID panel negative Sputum culture/Gram stain 3+ WBCs Occasional Gram Variable Rods Blood cultures NG within 48 hours MRSA nares negative and urine cultures no growth Plan: Continue on IV Zosyn Supplemental oxygen as needed Guaifenesin as needed for cough Tylenol as needed for fever #Colonic ileus, abundant stool - resolved CT abdomen pelvis significant for abundant stool in rectosigmoid, concern of colonic ileus. Per patient's behavioral health associate last bowel movement was yesterday morning, no concern of constipation. Patient had 2 BM overnight after having lactulose and senna Plan: Holding bowel regimen at this time #Severe protein calorie malnutrition #Status post PEG tube placement Patient's BMI 16.7, weight 34.9 kg, has PEG tube intact Plan: Following registered dietitian recommendations #Developmental delay secondary to cerebral palsy #Seizure disorder #Anxiety #Agitated Patient not on any antiepileptic drugs Pending med reconciliation, resume home meds as needed Continue baclofen #Left renal calculus As evidenced on CT abdomen/pelvis Plan: Outpatient follow-up Hospital Management: Diet: NPO Lines: Peripheral IV GI prophylaxis: Protonix IV daily DVT prophylaxis: Will hold at this time, recent stigmata of bleeding Dispo: Pending GI recs regarding PEG tube Code status: Full code Patient seen and examined with attending Dr. Tsering Koehler, PGY-1 Attending Provider Attestation/Addendum I have discussed and was present for the essential components of the history, physical examination, diagnosis, and treatment plan with the resident. I agree with the patient's care as documented by the resident and amended herein by me. Eze Cagle DO. Patient seen and evaluated this AM. No acute events overnight, blood pressure on the soft side this morning, 89/62, patient presently on nasal cannula, 2 L, SpO2 97%. Labs largely unremarkable with exception of a hemoglobin 9.4 which is relatively stable, potassium 3.3 which will be repleted. All cultures negative thus far. Will continue Zosyn for now considering the patient grew Pseudomonas in her sputum cultures, likely can discharge on levofloxacin when its time. Gastroenterology has been consulted for for GI bleed, EGD showed some esophageal ulcerations, will continue on Protonix and sulcal fate at this time. The patient apparently also pulled her G-tube last night, Dr. Bejarano will evaluate tonight, likely discharge tomorrow on 05/15 pending specialist recommendations. Although this document has been carefully reviewed, there may still be some phonetic and other typographical errors. These errors are purely grammatical due to imperfections in the software program and should not be construed in any way to compromise the substance of the patient's medical care during this visit.
[2024-05-14] MEDS: SUCRALFATE SUSP 1 GM/10 ML UDC GT ×2 (18:21→20:32)
[2024-05-14] MEDS: DEXTROSE 50%-WATER INJ 50 ML SYRINGE IV (18:42)
--- NOTE | 2024-05-14 21:38 | ESPR_ITS ---
Documentation for date of: 05/14/24 Subjective Subjective Interval history: Patient evaluated slight drop in hemoglobin hematocrit at 9.4 and 30.4 Upper endoscopy has shown distal esophageal ulcers and gastritis Exam Vital Signs Temp Pulse Resp BP Pulse Ox O2 Del Method O2 Flow Rate 99.9 F 127 H 26 H 99/60 92 L Nasal Cannula 2 05/14/24 20:00 05/14/24 20:00 05/14/24 20:00 05/14/24 20:00 05/14/24 20:00 05/14/24 20:00 05/14/24 16:00 Objective Labs 05/14/24 05:00 05/14/24 05:00 Labs: Laboratory Results - last 24 hr 05/14/24 05:00 WBC 5.8 RBC 3.32 L Hgb 9.4 L Hct 30.4 L MCV 92 MCH 28.3 MCHC 30.9 L RDW Std Deviation 43.3 Plt Count 271 D Neut % (Auto) 51 Lymph % (Auto) 33 [place] % (Auto) 15 H Eos % (Auto) 1 Baso % (Auto) 0 Neut # (Auto) 3.0 Lymph # (Auto) 1.9 [place] # (Auto) 0.9 H Eos # (Auto) 0.1 Baso # (Auto) 0.0 Immature Gran # (Auto) 0.02 H Absolute Nucleated RBC 0.00 Immature Gran % 0 Nucleated RBC % 0 Sodium 139 Potassium 3.8 Chloride 104 Carbon Dioxide 27.1 Anion Gap 8 BUN 11 Creatinine 0.4 L Estim Creat Clear Calc 114.6 eGFR > 60 BUN/Creatinine Ratio 28 H Glucose 92 Calculated Osmolality 276 Calcium 8.0 L Corrected Calcium 8.6 Phosphorus 2.8 Total Bilirubin 0.2 L AST 46 H ALT 34 Alkaline Phosphatase 77 Total Protein 5.7 Albumin 3.2 L Globulin 2.5 Albumin/Globulin Ratio 1.3 Impressions Impression: # Acute posthemorrhagic anemia # Distal esophageal ulceration # Gastritis Plan Continue current management Assessment & Plan A&P Narrative # Coffee-ground hematemesis # FOBT positive Plan N.p.o. midnight tonight except meds via the PEG tube Consent from the transplant case manager for fiberoptic esophagogastroduodenoscopy with possible therapeutic intervention under intravenous moderate sedation scheduled for tomorrow will follow-up with patient thank you very much for the opportunity to participate in care of this patient Time Spent With Patient Time: Total time spent is greater than 50% in coordination of care (as documented) at patient's floor/unit and/or counseling patient:
--- NOTE | 2024-05-14 23:11 | XR_ITS ---
Examination: Abdomen AP single view Technique: AP portable supine abdomen, single view Exam date and time: May 14, 2024 1121 hrs. Indications: unknown position gastrostomy tube Findings: Wall Mirror Department Supervisor contrast outlines the stomach and proximal small bowel Contrast accumulation also below the duodenal bulb of uncertain etiology Impression: Recommend this patient return for repeat contrast injection under fluoroscopy to confirm satisfactory position gastrostomy tube
--- NOTE | 2024-05-14 23:11 | PD.EVENT ---
Documentation for date of: 05/14/24 Event Note Event Note: gastrostomy tube seems to be in place We will get a Gastrografin KUB to make sure that the tube is intragastric
[2024-05-15] VITALS (7 sets, daily range): BP systolic 94–129; BP diastolic 46–73; PULSE 84–110; RESP 17–26; TEMP 36.4–37.1; O2SAT 95–99
--- NOTE | 2024-05-15 | XR_ITS ---
Examination: Abdomen AP single view Technique: AP portable supine abdomen, single view Exam date and time: May 15, 2024 1048 hours INDICATIONS: Unknown position gastrostomy tube FINDINGS: Gastrostomy tube in the stomach, contrast in the stomach with no leakage of contrast material IMPRESSION: Gastrostomy tube in the stomach
[2024-05-15] MEDS: DEXTROSE 50%-WATER INJ 50 ML SYRINGE 25 ML IV (00:21)
[2024-05-15] MEDS: PIPER/TAZO 3.375 GM 50 ML IV ×2 (05:28→14:44)
[2024-05-15] MEDS: SUCRALFATE SUSP 1 GM/10 ML UDC GT ×2 (05:28→11:32)
[2024-05-15 05:45] LABS: Basophils % (Auto) 0 % (0-2.5); Eosinophils # (Auto) 0.1 Thou/mm3 (0.0-0.5); Eosinophils % (Auto) 1 % (0-10); Hemoglobin 10.7 g/dL (12.0-16.0); Immature Granulocytes % (Auto) 1 % (0-0); Immature Granulocytes Auto 0.04 Thou/mm3 (0.00-0.00); Lymphocytes # (Auto) 3.2 Thou/mm3 (1.0-4.8); Lymphocytes % (Auto) 42 % (10-50); Mean Corpuscular HGB Conc 31.5 g/dl (31.0-37.0); Mean Corpuscular Hemoglobin 28.8 pg (25.0-35.0); Mean Corpuscular Volume 92 fL (80-100); Monocytes # (Auto) 0.9 Thou/mm3 (0.0-0.8); Monocytes % (Auto) 12 % (0-12); Neutrophils # (Auto) 3.5 Thou/mm3 (1.8-7.7); Neutrophils % (Auto) 45 % (37-80); Nucleated Red Blood Cell % 0 /100 WBC (0); Platelet Count 321 Thou/mm3 (140-440); RDW Standard Deviation 43.6 fL (36.4-46.3); Red Blood Count 3.71 Miln/mm3 (4.00-5.20); White Blood Count 7.8 Thou/mm3 (3.6-11.0)
[2024-05-15] MEDS: LORazepam 0.5 MG TABLET GT ×2 (06:23→15:03)
[2024-05-15 06:45] LABS: Alanine Aminotransferase 29 U/L (10-49); Albumin, Serum 3.8 gm/dL (3.5-5.0); Albumin/Globulin Ratio 1.2 (1.2-2.2); Alkaline Phosphatase 81 U/L (46-116); Anion Gap 10 (7-16); Aspartate Amino Transferase 34 U/L (0-34); BUN/Creatinine Ratio 18 Ratio (12-20); Bilirubin,Total 0.3 mg/dL (0.3-1.2); Blood Urea Nitrogen 9 mg/dL (9-23); Calcium 8.9 mg/dL (8.3-10.6); Calcium (Corrected) 9.1 mg/dL (8.5-10.1); Chloride 105 mMol/L (98-107); Creatinine (Component) 0.5 mg/dL (0.6-1.3); Estimated Creatinine Clearance 88.8 mL/min (>60); Globulin 3.1 gm/dL (2.3-3.5); Glucose 63 mg/dL (74-106); Osmolality,Calculated 277 (275-295); Potassium 4.3 mMol/L (3.4-5.1); Sodium 141 mMol/L (136-145); Total Protein 6.9 gm/dL (5.7-8.2); eGFR > 60 See Note
[2024-05-15] MEDS: BACLOFEN 10 MG TABLET 5 MG PO (08:08)
[2024-05-15] MEDS: PANTOPRAZOLE INJ 40 MG VIAL IVP (08:08)
--- NOTE | 2024-05-15 08:10 | PC.NURSE ---
Pt resting RA Sp02 86% Bed exercises RA Sp02 84% Pt resting 2L NC Sp02 91%
--- NOTE | 2024-05-15 09:16 | XR_ITS ---
Examination: Abdomen 5 spot views Fluoroscopy Exam date and time: May 15, 2024 1017 hours INDICATIONS: Unknown position gastrostomy tube TECHNIQUE AND FINDINGS: 5 spot fluoroscopic films abdomen obtained with injection of 50 cc Gastrografin Fluoroscopy 0.4 minute radiation dose 15.26 milligray Contrast in the stomach satisfactory position gastrostomy tube IMPRESSION: Gastrostomy tube in the stomach in satisfactory position
--- NOTE | 2024-05-15 09:32 | PC.SS ---
Addendum entered by Christine Hanna 05/15/24 11:14: SS has sent DME order for home O2 using [facility] Original Note: Follow up note: Pt is possible d/c and will return to [facility]. Pt will require transport home. Waiting for Dr. Darci dawkins to d/c.
--- NOTE | 2024-05-15 09:45 | PC.NURSE ---
Discharge orders in. Clarified active bolus order and xray, Per Dr Koehler, these are still needed before patient is ready to discharge.
--- NOTE | 2024-05-15 10:14 | PC.NURSE ---
pt to xray via [facility]
--- NOTE | 2024-05-15 11:04 | PC.NURSE ---
Patient to room from xray
[2024-05-15] MEDS: SODIUM CHLORIDE 0.9% 500 ML 500 ML 999 ML IV (11:06)
--- NOTE | 2024-05-15 11:32 | ESDS_ITS ---
<Statement entered by Willis Raymundo MD - 05/22/24 09:14> I reviewed above note and agree with findings and plans. I have also personally examined the patient with medicine team and went over assessment and plan with medical team including inclusion intern and resident physician. <Statement entered by Humberto Guillaume MD - 05/16/24 17:31> I discussed with and supervised the inclusion intern physician involved in the care of this patient. Patient assessment and plan was discussed with entire medicine team, including my attending. I agree with the assessment and plan as documented by inclusion intern doctor. Patient care was discussed with my attending physician Dr. Breanne Guillaume, PGY-2 Planned Discharge Date 05/15/24 DS: Providers Provider Date of admission: 05/11/24 02:01 Primary care physician: Physician No Primary/Family Admitting Provider: Gloria Patricio MD Attending Provider on Admission: Willis Raymundo MD Consults: 05/11/24 02:21 Referral Registered Dietitian Routine Comment: Protein Calorie Malnutrition 05/12/24 08:53 Consult to Gastroenterology Stat Comment: GIB Consulting Provider: Racquel Bejarano Attending Provider on DC: Lucas Koehler MD Discharging Provider: Lucas Koehler MD DS: Diagnosis Problem List Completed Was Problem List Reviewed/Reconciled?: Yes Hospital Course Hospital Course Hospital course: 23-year-old female past medical history of nonverbal at baseline, developmental delay due to cerebral palsy, seizure disorder, anxiety, chronically bedbound with PEG tube presented to the ED on 05/11/2024 from [facility] for vomiting and possible aspiration event. Patient had low blood pressure was given IV fluid resuscitation and IV antibiotics. There was suspicion for possible upper GI bleed as there was coffee-ground hematemesis; gastroenterology was consulted and upon getting consent from assembler caterpillar spider, EGD was done which showed esophageal ulcers, erythematous mucosa in the stomach. During hospitalization, patient apparently pulled her PEG tube out and it was placed back in by nurse. Gastroenterology assessed the PEG tube and was noted that it was in proper p lace, Gastrografin was done to confirm. Patient will be discharged with PEG tube in place along with strict instructions in place. Please continue to take Levofloxacin 750 mg for an additional 5 days, completing a total of 10 day course for Pseudomonas pneumonia Please take 4mg of ondansetron for nausea/vomitting if needed every 12 hours Continue to take all your home medications as prescribed New PEG tube was placed on 05/14/24 and imaging confirmed placement. May use as before. Oxygen as needed at 2 liters for oxygen saturation greater than 92. If your symptoms worsen, or if you develop new shortness of breat, fever, restlessness or bloody/dark stool or vomiting - please come back to the ED immediately. Hospital Diagnosis: #Upper GI Bleed, resolved #Acute hypoxic respiratory failure #Sepsis secondary to pneumonia, SIRS 3/4 #Bibasilar pneumonia, healthcare associated pneumonia versus aspiration pneumonia #Leukocytosis, improving #Colonic ileus, abundant stool - resolved #Severe protein calorie malnutrition #Status post PEG tube placement #Developmental delay secondary to cerebral palsy #Seizure disorder #Anxiety #Agitated #Left renal calculus Lucas Koehler, PGY-1 Status at Discharge Overall status at discharge: patient is progressing back to baseline Time Spent with Patient Time attestation: Total time spent providing and/or coordinating discharge services: 45 minutes Time spent: Greater than 30 minutes Exam Vital Signs Temp Pulse Resp BP Pulse Ox O2 Del Method O2 Flow Rate 97.5 F 108 H 17 96/46 L 95 Nasal Cannula 2 05/15/24 08:00 05/15/24 08:00 05/15/24 08:00 05/15/24 08:00 05/15/24 08:00 05/15/24 08:00 05/15/24 08:00 Narrative Exam Physical Exam General: Awake and less restless. Non-verbal at baseline, developmentally delayed. HEENT: Microcephalic, atraumatic, mucous membranes moist. Brown crusting around lips. Heart: Regular rate and rhythm, no murmurs. Lungs: Clear to auscultation with no wheezing or crackles. Abdomen: Soft, nondistended, nontender, positive bowel sounds. ?No guarding or rebound tenderness. Neurologic: Unable to access orientation, no new, gross neurological deficits, and patient able to move all 4 extremities. Extremities: No edema. Contracted extremities noted. Skin: No rash or ecchymoses. Discharge Plan Plan Patient Disposition: Xfer Skilled [facility] ([facility]) Patient condition on transfer: Stable Care Plan Goals: Please continue to take Levofloxacin 750 mg for an additional 5 days, completing a total of 10 day course for Pseudomonas pneumonia Please take 4mg of ondansetron for nausea/vomitting if needed every 12 hours Continue to take all your home medications as prescribed New PEG tube was placed on 05/14/24 and imaging confirmed placement. May use as before. Oxygen as needed at 2 liters for oxygen saturation greater than 92. If your symptoms worsen, or if you develop new shortness of breat, fever, restlessness or bloody/dark stool or vomiting - please come back to the ED immediately. Prescriptions/Referrals Prescriptions/Med Rec: New ondansetron 4 mg tablet,disintegrating 4 mg feeding tube Q12H PRN (Reason: nausea and vomiting) 30 Days Qty: 60 0RF levofloxacin 750 mg tablet 750 mg PO QDAY 5 Days Qty: 5 0RF Continued docusate sodium 50 mg/5 mL Liquid 100 mg feeding tube BID Thera-Tabs Tablet 1 tab feeding tube QDAY acetaminophen [Tylenol] 325 mg Tablet 650 mg feeding tube Q4H PRN (Reason: Fever Or Pain) simethicone 40 mg/0.6 mL Drops,Suspension 1 drp feeding tube UD Rx Instructions: one drop 1 to 2 times per day prn constipation and/or gas albuterol sulfate [Ventolin HFA] 90 mcg/actuation Hfa Aerosol Inhaler 2 puff INHALATION QID PRN (Reason: shortness of breath) Robitussin Cough-Chest Manuel DM 5-50 mg/5 mL Liquid 5 ml PO Q8HR PRN (Reason: Cough) Rx Instructions: PRN polyethylene glycol 3350 [Miralax] 17 gram Powder In Packet 17 g feeding tube EVERYOTHERDAY PRN (Reason: Constipation) Qty: 0 0RF Thera-Tabs Tablet 1 tab feeding tube QDAY Qty: 0 0RF lorazepam 0.5 mg Tablet 0.5 mg feeding tube [id number] PRN (Reason: Anxiety) Qty: 0 0RF baclofen 10 mg Tablet 10 mg feeding tube BID PRN (Reason: Muscle Spasm) Qty: 0 0RF bisacodyl 10 mg Suppository 10 mg [place] HS PRN (Reason: Constipation) Qty: 0 0RF Rx Instructions: give if no bowel movement that day, hold if has a bm same day loratadine [Claritin] 10 mg Tablet 10 mg feeding tube QDAY PRN (Reason: Allergy Symptoms) Qty: 0 0RF famotidine 40 mg tablet 40 mg feeding tube QDAY 30 Days Qty: 30 3RF Discontinued ondansetron HCl [Zofran] 4 mg Tablet 4 mg feeding tube QID PRN (Reason: Nausea And Vomiting) Qty: 0 0RF Referrals: No Primary/Family,Physician [Primary Care Provider] - Patient/Caregiver Discharge Instructions Education Materials: Bleeding Gastrointestinal, Using Oxygen Safely, Preventing Pneumonia, Treating Pneumonia, Using an Oxygen Tank at Home, ED Upper GI Bleeding (Stable) Print Language: [place] Stand Alone Forms: eTect Info., Patient Portal Info Letter Discharge Order Discharge Orders: Discharge (Routine); Ordered 05/15/24 Ordered By: Lucas Koehler Quality Discharge Quality Measures VTE prophylaxis
--- NOTE | 2024-05-15 11:43 | PC.SS ---
Addendum entered by Christine Hanna 05/15/24 15:37: SS received call from [place] with [employer] [facility] [employer] who state explained they will be providing transportation at 4pm. Victorina from [employer] confirmed they are aware pt requires O2 with transportation and they are able to accommodate O2. Bedside nurse is aware. Radha ROMAN is aware. Caregiver, Josh is aware. Addendum entered by Christine Hanna 05/15/24 12:21: SS spoke to Josh, patient's caregiver who is aware pt will require O2 at home. [facility] has accepted on [facility] and [facility] was considering. has setup gurney transportation with O2 for 5pm with Anita from [employer] . Ref# [id number]. has requested [facility] as the transportation vendor. Per Anita, [facility] is not guaranteed but will be considered. SS has spoken to Robina from [facility] who has placed pt on will call list until [facility] has contacted them. Josh from [facility] is aware of transportation. Bedside nurseAmelia is aware. Inés ROMAN is aware. has sent patient's facesheet and ambulance form signed by physician to [facility] using [facility]. Original Note: SS attempted to call patient's caregiver, Josh Dial and Catrina Person, thread cutter tender of the [facility] twice but was unsuccessful. SS left voicemail informing them pt is requiring O2 at home, pt ready for d/c, and requires transportation.
--- NOTE | 2024-05-15 13:53 | PC.NURSE ---
Received in report at 12:45 that pt's G tube placement is in satisfactory place. Called Dr. Koehler to inquire about restarting feedings via [facility]. will put order in.
--- NOTE | 2024-05-15 21:39 | ESPR_ITS ---
Documentation for date of: 05/15/24 Subjective Subjective Interval history: Late entry for the note Case discussed with the internal medicine team Gastrografin KUB shows the PEG tube to be in proper place Okay to discharge patient back to the nursing facility Exam Vital Signs Temp Pulse Resp BP Pulse Ox O2 Del Method O2 Flow Rate 98.4 F 110 H 18 129/61 96 Nasal Cannula 2 05/15/24 16:00 05/15/24 16:18 05/15/24 16:18 05/15/24 16:00 05/15/24 16:18 05/15/24 16:00 05/15/24 16:18 Objective Labs 05/15/24 04:47 05/15/24 04:47 Labs: Laboratory Results - last 24 hr 05/15/24 04:47 WBC 7.8 RBC 3.71 L Hgb 10.7 L Hct 34.0 L MCV 92 MCH 28.8 MCHC 31.5 RDW Std Deviation 43.6 Plt Count 321 D Neut % (Auto) 45 Lymph % (Auto) 42 [place] % (Auto) 12 Eos % (Auto) 1 Baso % (Auto) 0 Neut # (Auto) 3.5 Lymph # (Auto) 3.2 [place] # (Auto) 0.9 H Eos # (Auto) 0.1 Baso # (Auto) 0.0 Immature Gran # (Auto) 0.04 H Absolute Nucleated RBC 0.00 Immature Gran % 1 H Nucleated RBC % 0 Sodium 141 Potassium 4.3 D Chloride 105 Carbon Dioxide 26.0 Anion Gap 10 BUN 9 Creatinine 0.5 L Estim Creat Clear Calc 88.8 eGFR > 60 BUN/Creatinine Ratio 18 Glucose 63 L Calculated Osmolality 277 Calcium 8.9 Corrected Calcium 9.1 Total Bilirubin 0.3 AST 34 ALT 29 Alkaline Phosphatase 81 Total Protein 6.9 Albumin 3.8 D Globulin 3.1 Albumin/Globulin Ratio 1.2 Impressions Impression: PEG tube in proper position Start using the PEG tube Patient can be discharged to nursing facility No GI follow-up needed Assessment & Plan A&P Narrative # Coffee-ground hematemesis # FOBT positive Plan N.p.o. midnight tonight except meds via the PEG tube Consent from the telecommunications project manager for fiberoptic esophagogastroduodenoscopy with possible therapeutic intervention under intravenous moderate sedation scheduled for tomorrow will follow-up with patient thank you very much for the opportunity to participate in care of this patient Time Spent With Patient Time: Total time spent is greater than 50% in coordination of care (as documented) at patient's floor/unit and/or counseling patient:
== END 2024-05-15 16:15 | disposition other institution (70) | DRG 137 ==
LOC: SERX 05-11 02:15 → SERHOLD 05-11 02:48 → S3SX 05-11 08:53
PROVIDERS: Specialist; Student in an Organized Health Care Education/Training Program; Admitting Provider Student in an Organized Health Care Education/Training Program; Emergency Provider Emergency Medicine; Visit Provider Internal Medicine
PROC: 0DJ08ZZ Inspection of Upper Intestinal Tract, Via Natural or Artificial Opening Endoscopic (ICD-10-PCS; CPT 43239; principal; 2024-05-13 15:00)
DX: J15.1 Pneumonia due to Pseudomonas (principal); G80.9 Cerebral palsy, unspecified; E43 Unspecified severe protein-calorie malnutrition; Z68.1 Body mass index [BMI] 19.9 or less, adult; K56.7 Ileus, unspecified; K22.11 Ulcer of esophagus with bleeding; G40.909 Epilepsy, unspecified, not intractable, without status epilepticus; D62 Acute posthemorrhagic anemia; N20.0 Calculus of kidney; K29.71 Gastritis, unspecified, with bleeding; F41.9 Anxiety disorder, unspecified; Q02 Microcephaly; I95.9 Hypotension, unspecified; Z93.1 Gastrostomy status; Z74.01 Bed confinement status; Z79.899 Other long term (current) drug therapy
CPT/HCPCS: 36415; 71045; 74018; 74176; 76000; 80053; 80061; 81001; 82270; 83605; 83735; 84100; 84145; 84439; 84443; 85014; 85018; 85025; 85610; 85730; 87040; 87077; 87081; 87086; 87186; 87205; 87400; 87502; 87634; 87811; 93005; 93225; 94762; 96361; 96365; 96367; 96372; 96375; 99285; A4216; J0692; J1200; J1643; J1885; J2250; J2270; J2358; J2470; J2543; J3010; J3475; J3490; J7040; J7050; J7120; Q9963; A9270; J1836; J2359

== ENCOUNTER 2024-05-23 19:06 | Emergency (ER) | payer MEDICAID, SELFPAY ==
--- NOTE | 2024-05-23 19:50 | PD.EDGIBLD ---
ED GI Bleed RME/HPI General Chief complaint: GI Bleed Stated complaint: POSSIBLE RECTAL BLEED Time Seen by Provider: 05/23/24 19:32 Arrival date/time: 05/23/24 19:06 RME / HPI RME / HPI Narrative: 23-year-old female with past medical history of developmental delay due to cerebral palsy, seizure disorder, anxiety, chronically bedbound with PEG tube, nonverbal, was brought in by caregiver for bright red blood per rectum patient was noted to have bright red blood per rectum, when they are trying to clean the patient. Patient was just discharged in this hospital, 1 week ago and EGD was done by Dr. Bejarano. Patient still coughing. No fever was noted no vomiting noted. Patient not taking any blood thinner. Related Data Home Medications ?Medication ?Instructions ?Recorded ?Confirmed acetaminophen 325 mg tablet 650 mg feeding tube Q4H PRN Fever 07/04/19 08/11/23 (Tylenol) Or Pain albuterol sulfate 90 mcg/actuation 2 puff inhalation QID PRN 07/04/19 08/11/23 aerosol inhaler (Ventolin HFA) shortness of breath docusate sodium 50 mg/5 mL oral 100 mg feeding tube BID 07/04/19 08/11/23 liquid simethicone 40 mg/0.6 mL oral 1 drp feeding tube UD 07/04/19 08/11/23 drops,suspension therapeutic multivitamin 1 tab feeding tube QDAY 07/04/19 08/11/23 (Thera-Tabs tablet) dextromethorphan 5 mg-guaifenesin 5 ml PO Q8HR PRN Cough 07/05/19 08/11/23 50 mg/5 mL oral liquid (Robitussin Cough-Chest Congestion DM) Previous Rx's ?Medication ?Instructions ?Recorded baclofen 10 mg tablet 10 mg feeding tube BID PRN Muscle 07/08/19 Spasm #0 tabs bisacodyl 10 mg rectal suppository 10 mg UT HS PRN Constipation #0 ea 07/08/19 loratadine 10 mg tablet (Claritin) 10 mg feeding tube QDAY PRN 07/08/19 Allergy Symptoms #0 tabs lorazepam 0.5 mg tablet 0.5 mg feeding tube [id number] PRN 07/08/19 Anxiety #0 tabs polyethylene glycol 3350 17 gram 17 g feeding tube EVERYOTHERDAY 07/08/19 oral powder packet (Miralax) PRN Constipation #0 ea therapeutic multivitamin 1 tab feeding tube QDAY #0 tabs 07/08/19 (Thera-Tabs tablet) famotidine 40 mg tablet 40 mg feeding tube QDAY gastritis 08/13/23 1 month #30 tabs ondansetron 4 mg disintegrating 4 mg feeding tube Q12H PRN nausea 05/15/24 tablet and vomiting 1 month #60 tabs hydrocortisone acetate 25 mg 25 mg UT BID #24 ea 05/23/24 rectal suppository (Anusol-HC) Allergies Allergy/AdvReac Type Severity Reaction Status Date / Time No Known Allergies Allergy Verified 05/23/24 19:58 Review of Systems Review of Systems Narrative Review of Systems: Review of system reviewed and within normal limits except mentioned in HPI ED Exam Narrative Physical exam: VITAL SIGNS: Reviewed. GENERAL APPEARANCE: Alert and good eye contact, nonverbal, does not follows commands, no acute distress, HEAD AND FACE: Non-traumatic. ENT: PERRL, pink conjunctivitis, eyelid no trauma, Mucous membrane moist. NECK: Supple, nontender, no nuchal rigidity. CHEST: No tenderness, no crepitus, no paradoxical movement, no retractions. LUNGS: Clear, well ventilated, symmetric, no rales, no wheezing, no ronchi, no stridor, good breath sounds bilaterally. HEART: Regular rate, regular rhythm, no murmur, no gallops. ABDOMEN: Soft, positive bowel sounds, nondistended, no guarding, nontender, no rebound, no masses, PEG tube intact RECTAL: Deferred. GENITAL: Deferred. NEUROLOGICAL: Gross motor function intact sensory function intact, Appropriate for age. MUSCULOSKELETAL: low back nontender, full range of motion. EXTREMITIES: Contracted, range of motion. SKIN: Color pink, dry, no rash, no lacerations, no abrasions, no contusions. LYMPHATICS: Deferred. Course Quality Measures none Orders Category Date Time Status Occult Blood,Stool (Nursing) ONCE Care 05/23/24 19:50 Active CBC [CBC] Stat Lab 05/23/24 20:05 Completed CMP [Comprehensive Metabolic Panel] Stat Lab 05/23/24 20:05 Completed PT [Prothrombin Time with INR] Stat Lab 05/23/24 20:05 Completed PTT [Partial Thromboplastin Time] Stat Lab 05/23/24 20:05 Completed Vital Signs Vital signs: Vital Signs Temperature 99.5 F 05/23/24 19:52 Pulse Rate 110 H 05/23/24 19:52 Respiratory Rate 18 05/23/24 19:52 Blood Pressure 127/95 H 05/23/24 19:52 Pulse Oximetry (%) 100 05/23/24 19:52 Oxygen Delivery Method Nasal Cannula 05/23/24 19:52 Oxygen Flow Rate 2 05/23/24 19:52 GI Bleed [facility] Narrative MDM Narrative:: 23-year-old female with past medical history of developmental delay due to cerebral palsy, seizure disorder, anxiety, chronically bedbound with PEG tube, nonverbal, was brought in by caregiver for bright red blood per rectum patient was noted to have bright red blood per rectum, when they are trying to clean the patient. Patient was just discharged in this hospital, 1 week ago and EGD was done by Dr. Bejarano. Patient still coughing. No fever was noted no vomiting noted. Patient not taking any blood thinner. Patient's workup came back unremarkable. Her hemoglobin is on her baseline, at 10.3. The rest of the labs unremarkable. Patient data External records reviewed:: None Clinical information provided by:: strategic partner development manager Social determinants that could affect healthcare access:: none Patient has the following chronic illnesses:: Developmental delay, cerebral palsy, seizure disorder ,bedbound, on PEG tube, nonverbal How is presenting disease/condition affected by chronic disease/condition?: exacerbated by Evaluation data The following diagnostics were reviewed and interpreted by me:: lab results Lab and/or radiology exams considered but not ordered:: None Interpretation Summary: See results in MDM Medications / Prescriptions Medications or Prescriptions considered but not ordered:: None Medication administrations:: None Consultations Consultation(s) initiated? (list below): No Diagnosis GI bleed differential diagnosis: hemorrhoids, Lower gastrointestinal hemorrhage and hematochezia Most likely diagnosis given after review of the tests above:: Bright red blood per rectum Admission Indicated Admission indicated?: not indicated Explain why admission is indicated or not indicated:: Stable Admission Request Was there a request for admission?: No Disposition Plan Disposition Plan: Discharge Discharge Attestation Discharge Attestation: Patient condition: Stable Discharge Plan Plan Patient Disposition: HOME (Self Care) Disposition Comment: Stable Prescriptions/Referrals Prescriptions/Med Rec: New hydrocortisone acetate [Anusol-HC] 25 mg suppository 25 mg UT BID Qty: 24 0RF No Action docusate sodium 50 mg/5 mL Liquid 100 mg feeding tube BID Thera-Tabs Tablet 1 tab feeding tube QDAY acetaminophen [Tylenol] 325 mg Tablet 650 mg feeding tube Q4H PRN (Reason: Fever Or Pain) simethicone 40 mg/0.6 mL Drops,Suspension 1 drp feeding tube UD Rx Instructions: one drop 1 to 2 times per day prn constipation and/or gas albuterol sulfate [Ventolin HFA] 90 mcg/actuation Hfa Aerosol Inhaler 2 puff INHALATION QID PRN (Reason: shortness of breath) Robitussin Cough-Chest Manuel DM 5-50 mg/5 mL Liquid 5 ml PO Q8HR PRN (Reason: Cough) Rx Instructions: PRN polyethylene glycol 3350 [Miralax] 17 gram Powder In Packet 17 g feeding tube EVERYOTHERDAY PRN (Reason: Constipation) Qty: 0 0RF Thera-Tabs Tablet 1 tab feeding tube QDAY Qty: 0 0RF lorazepam 0.5 mg Tablet 0.5 mg feeding tube [id number] PRN (Reason: Anxiety) Qty: 0 0RF baclofen 10 mg Tablet 10 mg feeding tube BID PRN (Reason: Muscle Spasm) Qty: 0 0RF bisacodyl 10 mg Suppository 10 mg UT HS PRN (Reason: Constipation) Qty: 0 0RF Rx Instructions: give if no bowel movement that day, hold if has a bm same day loratadine [Claritin] 10 mg Tablet 10 mg feeding tube QDAY PRN (Reason: Allergy Symptoms) Qty: 0 0RF ondansetron 4 mg tablet,disintegrating 4 mg feeding tube Q12H PRN (Reason: nausea and vomiting) 30 Days Qty: 60 0RF famotidine 40 mg tablet 40 mg feeding tube QDAY 30 Days Qty: 30 3RF Problem List Clinical Impression: Bright red blood per rectum Patient/Caregiver Discharge Instructions Discharge Activity: activity as tolerated Education Materials: Understanding Rectal Bleeding Additional Instructions: Thank you for the opportunity for serving you today. You are stable for discharged . You are advised to: Follow-up with your PCP in 1 to 2 days Return to ED for worsening of symptoms Increase oral fluids Apply medication as prescribed Increase fiber in the diet Increase oral fluids Print Language: Thai Stand Alone Forms: [employer] Award Info., Patient Portal Info Letter PA/SHADE CLOTH FINISHER Supervising Physician PA/SHADE CLOTH FINISHER Supervising Physician: MD Belen
[2024-05-23 19:52] VITALS: BP 127/95; PULSE 110; RESP 18; TEMP 37.5; O2SAT 100
[2024-05-23 20:51] LABS: Basophils % (Auto) 0 % (0-2.5); Eosinophils # (Auto) 0.1 Thou/mm3 (0.0-0.5); Eosinophils % (Auto) 1 % (0-10); Hematocrit 33.3 % (36.0-46.0); Hemoglobin 10.3 g/dL (12.0-16.0); Immature Granulocytes % (Auto) 0 % (0-0); Immature Granulocytes Auto 0.04 Thou/mm3 (0.00-0.00); Lymphocytes # (Auto) 2.4 Thou/mm3 (1.0-4.8); Lymphocytes % (Auto) 21 % (10-50); Mean Corpuscular HGB Conc 30.9 g/dl (31.0-37.0); Mean Corpuscular Hemoglobin 27.8 pg (25.0-35.0); Mean Corpuscular Volume 90 fL (80-100); Monocytes % (Auto) 18 % (0-12); Neutrophils # (Auto) 6.7 Thou/mm3 (1.8-7.7); Neutrophils % (Auto) 59 % (37-80); Nucleated Red Blood Cell % 0 /100 WBC (0); Platelet Count 585 Thou/mm3 (140-440); RDW Standard Deviation 42.4 fL (36.4-46.3); Red Blood Count 3.71 Miln/mm3 (4.00-5.20); White Blood Count 11.3 Thou/mm3 (3.6-11.0)
[2024-05-23 21:01] LABS: Alanine Aminotransferase 14 U/L (10-49); Albumin, Serum 4.1 gm/dL (3.5-5.0); Albumin/Globulin Ratio 1.2 (1.2-2.2); Alkaline Phosphatase 97 U/L (46-116); Anion Gap 8 (7-16); Aspartate Amino Transferase 22 U/L (0-34); BUN/Creatinine Ratio 20 Ratio (12-20); Bilirubin,Total 0.2 mg/dL (0.3-1.2); Blood Urea Nitrogen 8 mg/dL (9-23); Carbon Dioxide 28.5 mMol/L (20.0-31.0); Chloride 108 mMol/L (98-107); Creatinine (Component) 0.4 mg/dL (0.6-1.3); Globulin 3.4 gm/dL (2.3-3.5); Glucose 106 mg/dL (74-106); Osmolality,Calculated 285 (275-295); Potassium 4.4 mMol/L (3.4-5.1); Sodium 144 mMol/L (136-145); Total Protein 7.5 gm/dL (5.7-8.2); eGFR > 60 See Note
[2024-05-23 21:25] LABS: INR 0.9 (0.9-1.3); Partial Thromboplastin Time 24.8 Seconds (22.0-36.0); Prothrombin Time 10.3 Seconds (9.0-12.2)
[2024-05-23 21:48] VITALS: BP 134/95; PULSE 114; RESP 18; O2SAT 100
== END 2024-05-23 21:45 | disposition home or self-care (01) ==
PROVIDERS: Nurse Practitioner Family; Emergency Provider Emergency Medicine
DX: K62.5 Hemorrhage of anus and rectum (principal); G40.909 Epilepsy, unspecified, not intractable, without status epilepticus; G80.9 Cerebral palsy, unspecified; Z74.01 Bed confinement status; Z93.1 Gastrostomy status
CPT/HCPCS: 36415; 80053; 85025; 85610; 85730; 99283